=== PATIENT | female | born 1975 | race Caucasian/White ===

== ENCOUNTER 2021-03-17 09:32 | Outpatient (RCR) | payer OTHER, SELFPAY | END 2021-04-03 23:59 | LOC: LABSPEC 09:32 | PROVIDERS: Visit Provider Family Medicine Geriatric Medicine | DX: Z03.818 Encounter for observation for suspected exposure to other biological agents ruled out (principal) | CPT/HCPCS: 87426 ==

== ENCOUNTER 2021-04-03 13:12 | Outpatient (RCR) | payer OTHER, SELFPAY | END 2021-04-03 23:59 | LOC: EMPH 13:12 | PROVIDERS: Visit Provider Family Medicine Geriatric Medicine | DX: Z03.818 Encounter for observation for suspected exposure to other biological agents ruled out (principal) | CPT/HCPCS: 87426; 87635; U0005; U0003 ==

== ENCOUNTER 2021-05-01 12:14 | Outpatient (RCR) | payer MEDICARE, SELFPAY | END 2021-05-04 23:59 | LOC: EMPH 12:14 | PROVIDERS: Visit Provider Family Medicine Geriatric Medicine | DX: Z03.818 Encounter for observation for suspected exposure to other biological agents ruled out (principal) | CPT/HCPCS: 87426 ==

== ENCOUNTER 2021-05-30 11:48 | Outpatient (RCR) | payer OTHER, MEDICARE, SELFPAY | END 2021-06-03 23:59 | LOC: EMPH 11:48 | PROVIDERS: Visit Provider Family Medicine Geriatric Medicine | DX: Z03.818 Encounter for observation for suspected exposure to other biological agents ruled out (principal) | CPT/HCPCS: 87426 ==

== ENCOUNTER 2021-06-05 08:36 | Outpatient (RCR) | payer OTHER, SELFPAY | END 2021-07-04 23:59 | LOC: EMPH 08:36 | PROVIDERS: Visit Provider Family Medicine Geriatric Medicine | DX: Z03.818 Encounter for observation for suspected exposure to other biological agents ruled out (principal) | CPT/HCPCS: 87426 ==

== ENCOUNTER 2021-06-13 14:10 | Outpatient (RCR) | payer OTHER, SELFPAY ==
[2021-06-13 10:27] LABS: Probe Check PASS
== END 2021-07-04 23:59 ==
LOC: EMPH 14:10
PROVIDERS: Visit Provider Family Medicine Geriatric Medicine
DX: Z03.818 Encounter for observation for suspected exposure to other biological agents ruled out (principal)
CPT/HCPCS: 87426; 87635; U0005; U0003

== ENCOUNTER → 2023-12-24 | Outpatient (CLI) | payer OTHER, MEDICAID, SELFPAY ==
--- NOTE | 2023-12-24 07:12 | BI_ITS ---
MAMMOGRAPHY - BILATERAL SCREENING REASON FOR EXAM: Female, 48 years old. Routine annual screening examination. PERTINENT HISTORY: Non-contributory. TECHNIQUE: Digital bilateral breast alex (3D mammographic acquisition) in the CC and MLO projections. 2-D mediolateral oblique (MLO) and craniocaudad (CC) views of both breasts were obtained. CAD: Full Field Digital Mammography with Computer Added Detection was performed. COMPARISON: Comparison is made with prior outside examination dated November 17, 2021. FINDINGS: Breast Composition: The breasts are extremely dense, which lowers the sensitivity of mammography. There are no dominant masses or suspicious calcifications. No other significant abnormalities are identified. There has been no significant change since the prior study. BI/SCRN MAMM (CAD)W/ALEX BILAT IMPRESSION: Stable bilateral screening mammogram. Yearly follow-up mammogram recommended. (A) ASSESSMENT CATEGORY: BIRADS Category 1: Negative. A letter regarding these results will be sent to the patient by the facility within 30 days. Approximately 10% of breast cancers are not detected by mammography. A normal mammogram should not delay biopsy of a clinically suspicious abnormality. [id number] Electronically Signed: Shad Pavon MD at 8:36 EDT ,
== END | disposition home or self-care (01) ==
PROVIDERS: PCP Family Medicine; Referring Provider Family Medicine; Visit Provider Family Medicine
DX: Z12.31 Encounter for screening mammogram for malignant neoplasm of breast (principal)
CPT/HCPCS: 77063; 77067

== ENCOUNTER → 2025-01-19 | Outpatient (CLI) | payer OTHER, SELFPAY ==
--- NOTE | 2025-01-19 07:09 | BI_ITS ---
EXAM: SCRN MAMM (CAD)W/ALEX BILAT DATE: 01/19/2025 CLINICAL HISTORY: F, Age 49 y/o , SCREENING TECHNIQUE: SCRN MAMM (CAD)W/ALEX BILAT COMPARISON: Prior exam(s) dated 12/24/2023. FINDINGS: TISSUE DENSITY: The breasts are heterogeneously dense, which may obscure small masses. The mammogram demonstrates that the patient has dense breasts. Supplemental screening with whole breast ultrasound or MRI may be considered for further evaluation. Bilateral Breast Mammographic Findings: No significant masses, calcifications or other abnormalities are identified. BI/SCRN MAMM (CAD)W/ALEX BILAT IMPRESSION: There is no mammographic evidence of malignancy. OVERALL FINAL ASSESSMENT BI-RADS 1: NEGATIVE. RECOMMENDATION: Routine annual follow-up in 1 Year A letter with findings and recommendations will be mailed to the patient. Reading Location: [id number]
--- OUTSIDE RECORDS SUMMARY | 2025-01-19 07:13 | XMS RPT_ITS | CCD ---
Author Organization [facility] Care Team Providers [facility] Food Service Worker Name Role Phone Joe Webb Primary Care Provider Stephanie Rutledge L Unavailable Unavailable Unavailable Stephanie Rutledge Attending Unavailable Aamir, Stephanie Referring Unavailable Aamir, Stephanie Primary Care Unavailable Aamir, Stephanie Attending Unavailable Aamir, Stephanie Referring Unavailable Aamir, Stephanie Primary Care Unavailable Aamir Stephanie Attending Unavailable Aamir, Stephanie Referring Unavailable AamirStephanie Primary Care Unavailable Stephanie Rutledge MD Primary Care Provider Stephanie Rutledge MD Unavailable [phone] Aamir, Dr. Stephanie Sanchez Referring Unavailab le Aamir, Dr. Stephanie Sanchez Attending Unavailab le Aamir, Dr. Stephanie Sanchez Primary Care Unavailab le Aamir, Dr. Stephanie Sanchez Attending Unavailab le Aamir, Dr. Stephanie Sanchez Primary Care Unavailab Stephanie Valderrama MD Unavailable Aamir Stephanie Referring Unavailable Aamir, Stephanie Attending Unavailable Aamir, Stephanie Primary Care Unavailable Aamir, Stephanie Primary Care Unavailable Assessment, Health Risk Referring Unavaila ble Assessment, Health Risk Attending Unavaila ble Stephanie Rutledge MD Primary Care Provider STEPHANIE RUTLEDGE Attending Unavailable STEPHANIE RUTLEDGE Primary Care Unavailable STEPHANIE RUTLEDGE Attending Unavailable STEPHANIE RUTLEDGE Primary Care Unavailable Allergies Allergy Classification Reported Allergen(s) Allergy Type Date of Onset Reaction(s) Facility (5 sources) gabapentin; Translations: [GABAPENTIN] Drug Allergy 11-09-2022 [facility] Medications Current Medications Medication Drug Class(es) Dates Sig (Normalized) Sig (Original) ascorbic acid 500 mg oral capsule (4 sources) Vitamin C ascorbic acid, vitamin C, 500 mg capsule Take by mouth. Active cholecalciferol 0.05 mg oral capsule (4 sources) Vitamin D cholecalciferol (Vitamin D-3) 50 mcg (2,000 unit) capsule Take by mouth. Active magnesium oxide 400 mg oral tablet (4 sources) magnesium oxide (Mag-Ox) 400 mg tablet 1 tablet (400 mg) once daily. Active naproxen sodium 220 mg oral tablet (3 sources) Nonsteroidal Anti-inflammatory Drug Start: 08-18-2013 naproxen sodium (Aleve) 220 mg tablet Take 1 tablet (220 mg) by mouth if needed. 08/18/2013 Active Completed/Discontinued Medications Medication Drug Class(es) Dates Sig (Normalized) Sig (Original) Enskyce 0.15-30 MG-MCG Oral Tablet (6 sources) Start: 04-28-2020 Enskyce 0.15-30 MG-MCG Oral Tablet Quantity: 28 Refills: 0 Ordered: 28-Apr-2020 DO Start : 28-Apr-2020 Active ipratropium bromide 0.021 mg/actuat metered dose nasal spray (10 sources) Anticholinergic Start: 05-22-2019 End: 11-20-2024 ipratropium (Atrovent) 21 mcg (0.03 %) nasal spray Administer into affected nostril(s). 05/22/2019 11/20/2024 Discontinued (Med List Cleanup) Start: 05-22-2019 take 2 spray(s) nasa l route three times daily as needed Ipratropium [place] 0.03 % Nasal Solution USE 2 SPRAY(S) IN EACH NOSTRIL THREE TIMES DAILY NEEDED FOR NASAL C Quantity: 1 Refills: 11 Ordered: 03-Nov-2021 Stephanie Rutledge MD Start : 22-May-2019 Active pregabalin 150 mg oral capsule (13 sources) Start: 05-17-2023 End: 05-22-2025 take 1 capsule by mouth twice daily pregabalin (Lyrica) 150 mg capsule Indications: Other migraine without status migrainosus, not intractable , Chronic neck pain Take 1 capsule (150 mg) by mouth 2 times a day. 60 capsule 5 05/22/2024 11/20/2024 Discontinued (Reorder) Start: 05-22-2019 take 1 capsule by [facility] twice daily pregabalin (Lyrica) 150 mg capsule Take 1 capsule (150 mg) by mouth 2 times a day. 0 05/22/2019 Active Vitamin C CAPS (6 sources) Vitamin C CAPS Q uantity: 0 Refills: 0 Ordered: 15-May-2021 DO Active Vitamin D CAPS (6 sources) Vitamin D CAPS Q uantity: 0 Refills: 0 Ordered: 15-May-2021 DO Active Zinc (6 sources) Zinc TABS Quanti ty: 0 Refills: 0 Ordered: 15-May-2021 DO Active Problems Active Problems Problem Classification Problem Date Documented Da te Episodic/Chronic Headache; including migraine (16 sources) Migraine; Translations: [Migraine, unspecified, without mention of intractable migraine without mention of status migrainosus] Onset: 11-09-2022 11-09-2022 Chronic Other aftercare (20 sources) Patient encounter status; Translations: [Encounter for therapeutic drug monitoring] Onset: 11-09-2022 11-09-2022 Episodic Comment on above: lyrica; Other aftercare (1 source) H/O: high risk medication; Translations: [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] 11-20-2024 Episodic Other aftercare (1 source) Long-term current use of drug therapy; Translations: [Other usp (current) drug therapy] 11-20-2024 Episodic Other aftercare (2 sources) 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; Translations: [Other usp (current) drug therapy] Onset: 11-20-2024 Episodic Other nervous system disorders (2 sources) Other chronic pain; Translations: [Other chronic pain] Onset: 11-09-2022 Chronic Other screening for suspected conditions (not mental disorders or infectious disease) (16 sources) Mammography abnormal; Translations: [Abnormal mammogram, unspecified] Onset: 11-09-2022 11-09-2022 Episodic Other upper respiratory disease (6 sources) Allergic rhinitis; Translations: [Allergic rhinitis, cause unspecified] Chronic Unclassified (1 source) Patient encounter status 11-20-2024 Past or Other Problems Problem Classification Problem Date Documented Da te Episodic/Chronic Nonmalignant breast conditions (1 source) Other specified disorders of breast; Translations: [Other specified disorders of breast] Onset: 05-25-2022 Episodic Spondylosis; intervertebral disc disorders; other back problems (10 sources) Chronic neck pain; Translations: [Cervicalgia] Onset: 11-09-2022 11-09-2022 Episodic Results Test Name Value Interpretation Reference Range Facility DRUG MONITOR, CLAUDIO KAPOOR URI NEon 11-23-2024 Alphahydroxyalprazolam Normal [facility] Comment on above: Performed By: #### 3 9367, 07886, 12280, 12319, 20073, 02733, 87633, 66175, 82584 #### [facility] [place] [address] Passport Support Associate: Deshawn Miller MD Alphahydroxymidazolam Normal [facility] Comment on above: Performed By: #### 3 9367, 42412, 10140, 63836, 45040, 07623, 60643, 95328, 33676 #### [facility] [place] [address] Passport Support Associate: Deshawn Miller MD Alphahydroxytriazolam Normal [facility] Comment on above: Performed By: #### 3 9367, 23523, 25269, 47983, 71112, 77886, 35252, 49259, 14227 #### [facility] [place] [address] Passport Support Associate: Deshawn Miller MD Aminoclonazepam Normal [facility] Comment on above: Performed By: #### 3 9367, 32601, 78041, 96568, 53323, 60847, 10177, 19248, 29768 #### [facility] [place] [address] Passport Support Associate: Deshawn Miller MD Benzodiazepines Comments Normal [facility] Comment on above: Performed By: #### 3 9367, 52726, 57158, 31389, 78473, 58578, 07038, 14175, 83212 #### [facility] [place] [address] Passport Support Associate: Deshawn Miller MD Hydroxyethylflurazepam Normal [facility] Comment on above: Performed By: #### 3 9367, 12191, 96231, 52475, 58926, 54273, 54946, 76225, 23077 #### [facility] [place] [address] Passport Support Associate: Deshawn Miller MD Lorazepam Normal [facility] Comment on above: Performed By: #### 3 9367, 53719, 69998, 82584, 96722, 48817, 20286, 55129, 21483 #### [facility] [place] [address] [employer]port Support Associate: Deshawn Pantoja Aminoclonazepam Normal [facility] Comment on above: Performed By: #### 3 9367, 35052, 83316, 96260, 19799, 14351, 35481, 19469, 86874 #### [facility] [place] [address] Passport Support Associate: Deshawn Renteria alprazolam Normal Q uest Diagnostics Comment on above: Performed By: #### 3 9367, 00585, 19972, 66298, 38015, 23635, 85551, 38526, 30322 #### [facility] [place] [address] [employer]port Support Associate: Deshawn Renteria midazolam Normal [facility] Comment on above: Performed By: #### 3 9367, 82561, 84814, 38426, 81933, 61094, 23072, 60007, 27083 #### [facility] [place] [address] [employer]port Support Associate: Deshawn Gerard triazolam Normal [facility] Comment on above: Performed By: #### 3 9367, 35740, 66804, 69875, 58262, 51509, 93101, 10528, 16436 #### [facility] [place] [address] Passport Support Associate: Deshawn Merati MD medMATCH Lorazepam Normal [facility] Comment on above: Performed By: #### 3 9367, 71683, 66658, 25802, 16291, 34618, 09511, 69003, 41560 #### [facility] [place] [address] [address] , [address] [place] [address] Passport Support Associate: Deshawn Pantoja Nordiazepam Normal Ques t [facility] Comment on above: Performed By: #### 3 9367, 57368, 09912, 47838, 72379, 55572, 89413, 89851, 75529 #### [facility] [address], [address] [place] [address] Passport Support Associate: Deshawn Pantoja [place], flurazepam Normal [facility] Comment on above: Performed By: #### 3 9367, 79610, 26975, 32023, 12321, 70232, 43009, 35608, 78129 #### [facility] [place] [address] [address] , [address] [place] [address] Passport Support Associate: Deshawn Pantoja Oxazepam Normal [facility] Comment on above: Performed By: #### 3 9367, 93676, 92398, 43334, 11005, 00768, 16362, 59232, 53932 #### [facility] [place] [address], [address] [place] [address] Passport Support Associate: Deshawn Pantoja Temazepam Normal [facility] Comment on above: Performed By: #### 3 9367, 18768, 48399, 67260, 90711, 37681, 55912, 26702, 30976 #### [facility] [place] [address] Passport Support Associate: Deshawn Miller MD Nordiazepam Normal [facility] Comment on above: Performed By: #### 3 9367, 41587, 69354, 24062, 70529, 54397, 52491, 85960, 84504 #### [facility] [address], [address] [place] [address] Passport Support Associate: Deshawn Miller MD Oxazepam Normal [facility] Comment on above: Performed By: #### 3 9367, 20579, 07022, 06555, 61219, 50290, 90313, 93843, 53158 #### [facility] [place] [address] Passport Support Associate: Deshawn Miller MD Temazepam Normal [facility] Comment on above: Performed By: #### 3 9367, 63818, 89054, 41882, 61559, 53576, 80587, 05940, 84337 #### [facility] [place] [address] Passport Support Associate: Deshawn Miller MD DRUG MONITOR, COCAINE METAB, W/CONF, URINEon 11-23-2024 Cocaine Metabolite Negative Normal <150 [facility] Comment on above: Performed By: #### 3 9367, 90597, 17807, 33967, 22118, 00357, 43670, 12608, 43381 #### [facility] [place] [address] Passport Support Associate: Deshawn Miller MD DRUG MONITOR, FENTANYL, QN, URINEon 11-23-2024 Fentanyl Negative Normal <0.5 [facility] Comment on above: Performed By: #### 3 9367, 03950, 66718, 56027, 10883, 41451, 33888, 88888, 22989 #### [facility] [place] [address] Passport Support Associate: Deshawn Miller MD Fentanyl Comments Normal [facility] Comment on above: Result Comment: See LDT Notes Performed By: #### 3 9367, 32748, 75507, 59213, 37122, 90743, 65162, 49804, 88357 #### [facility] [place] [address] Passport Support Associate: Deshawn Miller MD Norfentanyl Negative Normal <0.5 [facility] Comment on above: Performed By: #### 3 9367, 59454, 61779, 94398, 88589, 82757, 94771, 74373, 69447 #### [facility] [place] [address] Passport Support Associate: Deshawn Miller MD DRUG MONITOR, HEROIN METAB, QN, URINEon 11-23-2024 6 Acetylmorphine Negative Normal <10 [facility] Comment on above: Performed By: #### 3 9367, 02543, 29898, 83675, 02919, 11064, 23235, 58536, 36441 #### [facility] [place] [address] Passport Support Associate: Deshawn Miller MD Heroin Metab Comments Normal [facility] Comment on above: Result Comment: See LDT Notes Performed By: #### 3 9367, 23623, 59213, 97136, 07811, 45659, 05183, 37737, 99807 #### [facility] [place] [address] Passport Support Associate: Deshawn Miller MD DRUG MONITOR, MARIJUANA META B, W/CONF, URINEon 11-23-2024 Marijuana Metabolite Negative Normal <20 Ques t [facility] Comment on above: Performed By: #### 3 9367, 42400, 80731, 53019, 18254, 79352, 32316, 96558, 06482 #### [facility] [place] [address] Passport Support Associate: Deshawn Miller MD DRUG MONITOR, METHADONE META B, QN, URINEon 11-23-2024 EDDP Negative Normal <100 [facility] Comment on above: Performed By: #### 3 9367, 36998, 75915, 29526, 86272, 40844, 66395, 35424, 21936 #### [facility] [place] [address] Passport Support Associate: Deshawn Miller MD Methadone Negative Normal <100 [facility] Comment on above: Performed By: #### 3 9367, 47017, 28347, 13781, 88853, 98786, 77102, 64044, 40263 #### [facility] [address], [address] [place] [address] Passport Support Associate: Deshawn Miller MD Methadone Comments Normal [facility] Comment on above: Result Comment: See LDT Notes Performed By: #### 3 9367, 44687, 12185, 71475, 78807, 34816, 84318, 46423, 35285 #### [facility] [address], [address] [place] [address] Passport Support Associate: Deshawn Miller MD DRUG MONITOR, OPIATES EXPAND ED, QN, URINEon 11-23-2024 Codeine Negative Normal <50 [facility] Comment on above: Performed By: #### 3 9367, 47058, 24870, 17518, 55569, 90258, 22717, 93676, 95334 #### [facility] [place] [address] Passport Support Associate: Deshawn Miller MD Hydrocodone Negative Normal <50 [facility] Comment on above: Performed By: #### 3 9367, 13924, 28021, 75349, 81623, 12273, 24551, 50709, 22538 #### [facility] [place] [address] Passport Support Associate: Deshawn Miller MD Hydromorphone Negative Normal <50 [facility] Comment on above: Performed By: #### 3 9367, 72348, 12351, 25324, 72572, 10831, 99905, 26544, 66724 #### [facility] [place] [address] Passport Support Associate: Deshawn Miller MD Morphine Negative Normal <50 [facility] Comment on above: Performed By: #### 3 9367, 39671, 57447, 63833, 89864, 65625, 74706, 77934, 89084 #### [facility] [place] [address] Passport Support Associate: Deshawn Miller MD Norhydrocodone Negative Normal <50 [facility] Comment on above: Performed By: #### 3 9367, 28530, 96931, 37315, 30475, 78030, 82147, 25604, 51150 #### [facility] [address], [address] [place] [address] Passport Support Associate: Deshawn Miller MD Noroxycodone Negative Normal <50 [facility] Comment on above: Performed By: #### 3 9367, 51141, 72977, 27596, 65832, 41312, 00139, 61782, 33770 #### [facility] [address], [address] [place] [address] Passport Support Associate: Deshawn Miller MD Opiates Comments Normal [facility] Comment on above: Result Comment: See LDT Notes Performed By: #### 3 9367, 26178, 00247, 54975, 54646, 90539, 65172, 38390, 16758 #### [facility] [address], [address] [place] [address] Passport Support Associate: Deshawn Miller MD Oxycodone Negative Normal <50 [facility] Comment on above: Performed By: #### 3 9367, 60134, 21908, 51560, 00113, 15473, 40661, 94130, 05111 #### [facility] [address], [address] [place] [address] Passport Support Associate: Deshawn Miller MD Oxycodone Comments Normal [facility] Comment on above: Result Comment: See LDT Notes Performed By: #### 3 9367, 56108, 54106, 46167, 62229, 25264, 26424, 14743, 96029 #### [facility] [address], [address] [place] [address] Passport Support Associate: Deshawn Miller MD Oxymorphone Negative Normal <50 [facility] Comment on above: Performed By: #### 3 9367, 03255, 66487, 66677, 31669, 27041, 27764, 84453, 19107 #### [facility] [address], [address] [place] [address] Passport Support Associate: Deshawn Miller MD DRUG MONITOR, PCP, W/CONF, U RINEon 11-23-2024 Phencyclidine Negative Normal <25 [facility] Comment on above: Performed By: #### 3 9367, 80235, 71397, 26399, 28316, 69728, 72214, 84140, 74571 #### [facility] [address], [address] [place] [address] Passport Support Associate: Deshawn Miller MD DRUG MONITOR, PREGABALIN, QN , URINEon 11-23-2024 Pregabalin 16775 ng/mL High <1000 [facility] Comment on above: Performed By: #### 3 9367, 02817, 46650, 77384, 70002, 51607, 38531, 19224, 71316 #### [facility] [address], [address] [place] [address] Passport Support Associate: Deshawn Miller MD Pregabalin Comments Normal [facility] Comment on above: Result Comment: See Pregabalin Notes, LDT Notes Performed By: #### 3 9367, 28840, 49803, 12677, 56720, 55448, 32302, 33433, 34980 #### [facility] [address], [address] [place] [address] Passport Support Associate: Deshawn Milelr MD DRUG MONITOR, TRAMADOL, QN, URINEon 11-23-2024 Desmethyltramadol Negative Normal <100 [facility] Comment on above: Performed By: #### 3 9367, 67209, 69975, 00091, 15899, 79204, 27626, 20084, 24158 #### [facility] [address], [address] [place] [address] Passport Support Associate: Deshawn Miller MD Tramadol Negative Normal <100 [facility] Comment on above: Performed By: #### 3 9367, 71237, 59002, 66194, 18590, 25684, 58858, 52860, 15064 #### [facility] [address], [address] [place] [address] Passport Support Associate: Deshawn Miller MD Tramadol Comments Normal [facility] Comment on above: Result Comment: See LDT Notes Performed By: #### 3 9367, 80277, 27235, 11138, 90263, 58644, 93729, 72081, 67878 #### [facility] [address], [address] [place] [address] Passport Support Associate: Deshawn Miller MD DRUG MONITOR, ZOLPIDEM, QN, URINEon 11-23-2024 medMATCH Zolpidem Normal [facility] Comment on above: Performed By: #### 3 9367, 33857, 47242, 37822, 77098, 46521, 54555, 85418, 50183 #### [facility] [place] [address] Passport Support Associate: Deshawn Miller MD medMATCH Zolpidem Metab Normal [facility] Comment on above: Performed By: #### 3 9367, 19761, 13751, 42626, 79498, 40111, 31429, 97315, 02725 #### [facility] [address], [address] [place] [address] Passport Support Associate: Desahwn Miller MD Zolpidem Normal [facility] Comment on above: Performed By: #### 3 9367, 91615, 53677, 91243, 01014, 08671, 79346, 09917, 71646 #### [facility] [address], [address] [place] [address] Passport Support Associate: Deshawn Miller MD Zolpidem Comments Normal [facility] Comment on above: Performed By: #### 3 9367, 89516, 37671, 58996, 25173, 11010, 83021, 95663, 01903 #### [facility] [place] [address] [employer]port Support Associate: Deshawn Miller MD Zolpidem Metabolite Normal [facility] Comment on above: Performed By: #### 3 9367, 80870, 86528, 15511, 96756, 33939, 66530, 24081, 01128 #### [facility] [address], [address] [place] [address] Passport Support Associate: Deshawn Miller MD DRUG MONITOR,AMPHETAMINE, W/ CONF, URINEon 11-23-2024 Amphetamines Negative Normal <500 [facility] Comment on above: Performed By: #### 3 9367, 57895, 80845, 65211, 22825, 05535, 35711, 68785, 70794 #### [facility] [address], [address] [place] [address] [employer]port Support Associate: Deshawn Miller MD DRUG MONITOR,BARBITURATE, W/ CONF, URINEon 11-23-2024 Barbiturates Negative Normal <300 [facility] Comment on above: Performed By: #### 3 9367, 03076, 88531, 25936, 52576, 72260, 50406, 81154, 61342 #### [facility] [address], [address] [place] [address] Passport Support Associate: Deshawn Miller MD DRUG MONITORING TEMPLATEon 0 11-23-2024 Notes and Comments Normal [facility] Comment on above: Result Comment: This drug testing is for medical treatment only. Analysis was performed as non-forensic testing and these results should be used only by healthcare providers to render diagnosis or treatment, or to monitor progress of medical conditions. Pregabalin Notes: Pregabalin detected is consistent with the use of the drug Pregabalin. LDT Notes: Confirmation tests were developed and their analytical performance characteristics have been determined by [facility]. It has not been cleared or approved by the FDA. This assay has been validated pursuant to the CLIA regulations and is used for clinical purposes. Healthcare Providers needing Interpretation assistance, please contact us at [phone] ( ) M-F, 8am to 10pm EST Performed By: #### 3 9367, 33797, 88791, 28042, 21728, 53093, 66716, 98780, 87324 #### [facility] [address], [address] [place] [address] Passport Support Associate: Deshawn Miller MD SPECIMEN VALIDITY TEST PANEL on 11-23-2024 Creatinine [Mass/Vol] 36.1 mg/dL Normal > or = 20.0 [facility] Comment on above: Performed By: #### 3 9367, 25634, 72949, 23155, 95286, 34994, 14717, 42829, 82225 #### [facility] [address], [address] [place] [address] [employer]port Support Associate: Deshawn Miller MD Oxidant Negative Normal <200 [facility] Comment on above: Performed By: #### 3 9367, 04862, 10881, 42628, 96852, 56602, 77973, 95606, 95555 #### [facility] [address], [address] [place] [address] [employer]port Support Associate: Deshawn Miller MD pH (Bld) 6.8 [pH] Normal 4.5-9.0 [facility] Comment on above: Performed By: #### 3 9367, 69534, 94585, 63795, 44910, 85126, 10515, 85687, 59857 #### [facility] [address], [address] [place] [address] [employer]port Support Associate: Deshawn Miller MD CBC, Employeeon 11-15-2024 Absolute Lymph 1.47 X10 3/uL Normal 0.83-4.51 [facility] Comment on above: Performed By: #### L 400.0100, L100.0200, L500.2900 #### [facility] [address] [place], [address] Absolute Neut 2.7 X10 3/uL Normal 2.0-7.7 [facility] Comment on above: Performed By: #### L 400.0100, L100.0200, L500.2900 #### [facility] [address] [facility] [place], [address] Basophils/100 WBC (Bld) 0.4 % Normal 0-1 [facility] Comment on above: Performed By: #### L 400.0100, L100.0200, L500.2900 #### [facility] [address] [place], [address] Eosinophils/100 WBC (Bld) 2.5 % Normal 0-5 [facility] Comment on above: Performed By: #### L 400.0100, L100.0200, L500.2900 #### [facility] [address] [place], [address] Erythrocyte distribution width (RBC) [Ratio] 12.6 % Normal 11.6-14.6 [facility] Comment on above: Performed By: #### L 400.0100, L100.0200, L500.2900 #### [facility] [address] [place], [address] Hematocrit (Bld) [Volume fraction] 42.9 % Normal 37-47 [facility] Comment on above: Performed By: #### L 400.0100, L100.0200, L500.2900 #### [facility] [address] [place], [address] Hemoglobin (Bld) [Mass/Vol] 14.1 g/dL Normal 12.0-15.0 [facility] Comment on above: Performed By: #### L 400.0100, L100.0200, L500.2900 #### [facility] [address] [place], [address] Lymphocytes/100 WBC (Bld) 31.0 % Normal 19-41 [facility] Comment on above: Performed By: #### L 400.0100, L100.0200, L500.2900 #### [facility] [address] [place], [address] MCH (RBC) [Entitic mass] 29.8 pg Normal 27.0-32.0 [facility] Comment on above: Performed By: #### L 400.0100, L100.0200, L500.2900 #### [facility] [address] [place], [address] MCHC (RBC) [Mass/Vol] 32.9 g/dL Normal 32-36 [facility] Comment on above: Performed By: #### L 400.0100, L100.0200, L500.2900 #### [facility] [address] [place], [address] MCV (RBC) [Entitic vol] 90.7 fL Normal 81-99 [facility] Comment on above: Performed By: #### L 400.0100, L100.0200, L500.2900 #### [facility] [address] [place], [address] Monocytes/100 WBC (Bld) 9.7 % Normal 0-10 [facility] Comment on above: Performed By: #### L 400.0100, L100.0200, L500.2900 #### [facility] [address] [place], [address] Neutrophils/100 WBC (Bld) 56.2 % Normal 47-70 [facility] Comment on above: Performed By: #### L 400.0100, L100.0200, L500.2900 #### [facility] [address] [place], [address] NRBC # 0.00 10 3/uL Normal 0-5 [facility] Comment on above: Performed By: #### L 400.0100, L100.0200, L500.2900 #### [facility] [address] [place], [address] Nucleated RBC (Bld) [#/Vol] 0 10*3/uL Normal 0-5 [facility] Comment on above: Performed By: #### L 400.0100, L100.0200, L500.2900 #### [facility] [address] [place], [address] Platelet mean volume (Bld) [Entitic vol] 10.5 fL Normal 6.2-12.0 [facility] Comment on above: Performed By: #### L 400.0100, L100.0200, L500.2900 #### [facility] [address] [place], [address] Platelets (Bld) [#/Vol] 201 10*3/uL Normal 150-450 [facility] Comment on above: Performed By: #### L 400.0100, L100.0200, L500.2900 #### [facility] [address] [place], [address] RBC (Bld) [#/Vol] 4.73 10*6/uL Normal 4.2-5.4 [facility] Comment on above: Performed By: #### L 400.0100, L100.0200, L500.2900 #### [facility] [address] [place], [address] RDW SD 41.9 fl Normal 35.1-43.9 [facility] Comment on above: Performed By: #### L 400.0100, L100.0200, L500.2900 #### [facility] [address] [place], [address] WBC (Bld) [#/Vol] 4.7 10*3/uL Normal 4.4-11.0 [facility] Comment on above: Performed By: #### L 400.0100, L100.0200, L500.2900 #### [facility] [address] [place], [address] Employee Profileon 5 Cholesterol in LDL [Mass/Vol] 130 mg/dL Normal 0-130 [facility] Comment on above: Performed By: #### L 400.0100, L100.0200, L500.2900 #### [facility] [address] [place], [address] Urinalysis, Employeeon 11-15 BILIRUBIN URINE Normal Negative [facility] Comment on above: Order Comment: Urine , Random Result Comment: NOT WANTED Performed By: #### L 400.0100, L100.0200, L500.2900 #### [facility] [address] [place], [address] Clarity (U) Normal Clear [facility] Comment on above: Order Comment: Urine , Random Result Comment: NOT WANTED Performed By: #### L 400.0100, L100.0200, L500.2900 #### [facility] [address] [place], [address] Color (U) Normal Yellow [facility] Comment on above: Order Comment: Urine , Random Result Comment: NOT WANTED Performed By: #### L 400.0100, L100.0200, L500.2900 #### [facility] [address] [place], [address] GLUCOSE, UR Normal Normal [facility] Comment on above: Order Comment: Urine , Random Result Comment: NOT WANTED Performed By: #### L 400.0100, L100.0200, L500.2900 #### [facility] [address] [place], [address] KETONE UR Normal Negative [facility] Comment on above: Order Comment: Urine , Random Result Comment: NOT WANTED Performed By: #### L 400.0100, L100.0200, L500.2900 #### [facility] [address] [place], [address] LEUK ESTERASE Normal Negative [facility] Comment on above: Order Comment: Urine , Random Result Comment: NOT WANTED Performed By: #### L 400.0100, L100.0200, L500.2900 #### [facility] [address] [place], [address] Nitrite Ql (U) Normal Negative [facility] Comment on above: Order Comment: Urine , Random Result Comment: NOT WANTED Performed By: #### L 400.0100, L100.0200, L500.2900 #### [facility] [address] [place], [address] OCCULT BLOOD-UR Normal Negative [facility] Comment on above: Order Comment: Urine , Random Result Comment: NOT WANTED Performed By: #### L 400.0100, L100.0200, L500.2900 #### [facility] [address] [place], [address] pH UR Normal 5.0 - 8.0 [facility] Comment on above: Order Comment: Urine , Random Result Comment: NOT WANTED Performed By: #### L 400.0100, L100.0200, L500.2900 #### [facility] [address] [place], [address] PROT DIPSTX Normal Negative [facility] Comment on above: Order Comment: Urine , Random Result Comment: NOT WANTED Performed By: #### L 400.0100, L100.0200, L500.2900 #### [facility] [address] [place], [address] SP.GR. DIPSTX Normal 1.002-1.030 [facility] Comment on above: Order Comment: Urine , Random Result Comment: NOT WANTED Performed By: #### L 400.0100, L100.0200, L500.2900 #### [facility] [address] [place], [address] UR Preservative Normal [facility] Comment on above: Order Comment: Urine , Random Result Comment: NOT WANTED Performed By: #### L 400.0100, L100.0200, L500.2900 #### [facility] [address] [place], [place], [address] UROBILI Normal Normal [facility] Comment on above: Order Comment: Urine , Random Result Comment: NOT WANTED Performed By: #### L 400.0100, L100.0200, L500.2900 #### [facility] [address] [place], [address] SCRN MAMM (CAD)W/DARWIN BILATo n 12-24-2023 SCRN MAMM (CAD)W/DARWIN BILAT [facility] Services [address] [place], [place] [address] SCRN MAMM (CAD)W/DARWIN BILAT MR#: [id number] Acct: [id number] Name: PEDRITO KHALIL Rep #: [id number] : 1975 F 48 From: Shad kyle MD PCP: Dr. Stephanie Rutledge MD Status: [facility] Study: SCRN MAMM (CAD)W/DARWIN BILAT Date of Exam: 12/04 07/28 Exam# [id number] Ordering [place]: [place] [id number] MAMMOGRAPHY - BILATERAL SCREENING REASON FOR EXAM: Female, 48 years old. Routine annual screening examination. PERTINENT HISTORY: Non-contributory. TECHNIQUE: Digital bilateral breast darwin (3D mammographic acquisition) in the CC and MLO projections. 2-D mediolateral oblique (MLO) and craniocaudad (CC) views of both breasts were obtained. CAD: Full Field Digital Mammography with Computer Added Detection was performed. COMPARISON: Comparison is made with prior outside examination dated November 17, 2021. FINDINGS: Breast Composition: The breasts are extremely dense, which lowers the sensitivity of mammography. There are no dominant masses or suspicious calcifications. No other significant abnormalities are identified. There has been no significant change since the prior study. BI/SCRN MAMM (CAD)W/DARWIN BILAT IMPRESSION: Stable bilateral screening mammogram. Yearly follow-up mammogram recommended. (A) ASSESSMENT CATEGORY: BIRADS Category 1: Negative. A letter regarding these results will be sent to the patient by the facility within 30 days. Approximately 10% of breast cancers are not detected by mammography. A normal mammogram should not delay biopsy of a clinically suspicious abnormality. [id number] Electronically Signed: Shad Pavon MD at 8:36 EDT , CC: Dr. Stephanie Rutledge MD Air Pumper: Signed Normal [facility] COVID-19 virus antigen assay Ordered By: Gilbert Faria on 06-01-2023 SARS-CoV-2 (COVID-19) Ag IA.rapid Ql (Resp) [facility] COVID-19 virus antigen assay Ordered By: Gilbert Faria on 04-16-2023 SARS-CoV-2 (COVID-19) Ag IA.rapid Ql (Resp) [facility] COVID-19 virus antigen assay Ordered By: Gilbert Faria on 03-27-2023 SARS-CoV-2 (COVID-19) Ag IA.rapid Ql (Resp) [facility] SARS-CoV-2 (COVID-19) Ag IA.rapid Ql (Resp) [facility] DIGITAL DIAG MAMM BILAT WITH TOMOon 11-25-2022 DIGITAL DIAG MAMM BILAT WITH DARWIN Patient Name: PEDRITO KHALIL STUDY: Digital diagnostic mammogram bilateral with darwin; 11/25/2022 8:27 am ACCESSION NUMBER(S): [id number] ORDERING CLINICIAN: STEPHANIE RUTLEDGE INDICATION: Diagnostic mammogram. Six-month follow-up abnormal mammogram COMPARISON: Comparison is made to prior digital mammograms dated 05/25/2022 and 11/17/2021 FINDINGS: CC and MLO 2D digital mammograms and digital breast tomosynthesis images were obtained of the bilateral breasts. 3-D volume images were reconstructed in 4 views at an independent workstation as 1 mm slices through the breasts in both the CC and MLO projections. The breast tissue is heterogeneously dense, which may obscure small masses. No discrete mass or focal asymmetry is identified. No suspicious microcalcifications or foci of architectural distortion are seen. There has been no significant change. This study was interpreted with CAD. IMPRESSION: No mammographic evidence of malignancy. The patient may return to normal yearly screening mammogram schedule. BI-RADS CATEGORY: Category: 1 - Negative. Recommendation: 1 Year Screening. Electronically signed by: LUIS MONCADA MD Normal [facility] DRUG SCREEN,URINE WITH REFLE X TO CONFIRMATIONon 11-10-2022 AMPHETAMINE SCREEN,U Negative Normal NEGATIVE [facility] Comment on above: Result Comment: CUTO FF LEVEL: 500 NG/ML Cross-reactivity has been reported with high concentrations of the following drugs: buproprion, chloroquine, chlorpromazine, ephedrine, mephentermine, fenfluramine, phentermine, phenylpropanolamine, pseudoephedrine, and propranolol. Performed By: #### D RUGR #### [facility] [address] [place] [address] BARBITURATES SCREEN,U Negative Normal NEGATIVE [facility] Comment on above: Result Comment: CUTO FF LEVEL: 200 NG/ML Performed By: #### D RUGR #### [facility] [address] [place] [address] BENZODIAZEPINES SCREEN,U Negative Normal NEGATIVE [facility] Comment on above: Result Comment: CUTO FF LEVEL: 200 NG/ML Performed By: #### D RUGR #### [facility] [address] [place] [address] CANNABINOIDS SCREEN,U Negative Normal NEGATIVE [facility] Comment on above: Result Comment: CUTO FF LEVEL: 50 NG/ML Performed By: #### D RUGR #### [facility] [address] [place] [address] COCAINE METABOLITE SCREEN,U Negative Normal NEGATIVE [facility] Comment on above: Result Comment: CUTO FF LEVEL: 150 NG/ML Performed By: #### D RUGR #### [facility] [address] [place] [address] DRUG SCREEN COMMENT SEE BELOW [facility] Comment on above: Result Comment: Drug screen results are presumptive and should not be used to assess compliance with prescribed medication. Definitive confirmatory drug testing has been added to this sample for any positive screen result and will be reported separately. . Toxicology screening results are reported qualitatively. The concentration must be greater than or equal to the cutoff to be reported as positive. The concentration at which the screening test can detect an individual drug or metabolite varies. The absence of expected drug(s) and/or drug metabolite(s) may indicate non-compliance, inappropriate timing of specimen collection relative to drug administration, poor drug absorption, diluted/adulterated urine, or limitations of testing. For medical purposes only; not valid for forensic use. . Interpretive questions should be directed to the laboratory medical directors. Performed By: #### D RUGR #### [facility] [address] [place] [address] FENTANYL SCREEN,URINE Negative Normal NEGATIVE [facility] Comment on above: Result Comment: CUTO FF LEVEL: 5 NG/ML Performed By: #### D RUGR #### [facility] [address] [place] [address] METHADONE SCREEN,U Negative Normal NEGATIVE [facility] Comment on above: Result Comment: CUTO FF LEVEL: 150 NG/ML The metabolite K-lstcr-jsjhtoupntvddy (LAAM) is not detected by this method in concentrations that would be found in the urine of patients on LAAM therapy. Performed By: #### D RUGR #### [facility] [address] [place] [id number] OPIATES SCREEN,U Negative Normal NEGATIVE [facility] Comment on above: Result Comment: CUTO FF LEVEL: 300 NG/ML The opiate screen does not detect fentanyl, meperidine, or tramadol. Oxycodone is not consistently detected (refer to Oxycodone Screen, Urine result). Performed By: #### D RUGR #### [facility] [address] [place] [address] OXYCODONE SCREEN,U Negative Normal NEGATIVE [facility] Comment on above: Result Comment: CUTO FF LEVEL: 100 NG/ML This test will accurately detect both oxycodone and oxymorphone. Performed By: #### D RUGR #### [facility] [address] [place] [id number] PCP SCREEN,U Negative Normal NEGATIVE [facility] Comment on above: Result Comment: CUTO FF LEVEL: 25 NG/ML Cross-reactivity has been reported with dextromethorphan. Performed By: #### D RUGR #### [facility] [address] [place] [address] DRUG SCREEN,URINE WITH REFLE X TO CONFIRMATIONon 11-09-2022 Lab Specimen Source Urine Normal [facility] Comment on above: Performed By: #### D RUGR #### [facility] [address] [place] [address] DIGITAL DIAG MAMM LEFT W/JC O UNILATon 05-25-2022 DIGITAL DIAG MAMM LEFT W/DARWIN UNILAT Patient Name: PEDRITO KHALIL STUDY: Left digital diagnostic mammogram with darwin; 05/25/2022 8:15 am ACCESSION NUMBER(S): [id number] ORDERING CLINICIAN: STEPHANIE RUTLEDGE INDICATION: Diagnostic mammogram. Prior abnormal mammogram COMPARISON: Comparison is made to prior digital mammograms dated 11/17/2021 FINDINGS: CC and MLO 2D digital mammograms and digital breast tomosynthesis images were obtained of the left breast. 3-D volume images were reconstructed in 3 views at an independent workstation as 1 mm slices through the left breast in both the CC and MLO projections. The breast tissue is heterogeneously dense, which may obscure small masses. The focal asymmetry seen on the prior examination is not well visualized on the current study.No discrete mass or focal asymmetry is currently identified. No suspicious microcalcifications or foci of architectural distortion are seen. This study was interpreted with CAD. IMPRESSION: No mammographic evidence of malignancy. Recommendation is for follow-up examination in 6 months with bilateral diagnostic mammograms. BI-RADS CATEGORY: Category: 3 - Probably Benign. Recommendation: 6 Month Follow-up. Electronically signed by: LUIS MONCADA MD Normal [facility] Radiologyon 05-25-2022 MG Breast Screening Normal [facility] Work Phone: Office Visit (Family Arun davis)on 05-11-2022 Follow-up visit Diagnoses/Problems Abnormal mammogram (793.80) (R92.8) Migraine (346.90) (G43.909) Orders Abnormal mammogram Ultrasound Limited Breast; Status:Hold For - Scheduling; Requested for:11May2022; Radiologist to Determine Optimal Study : Y What are the patient's signs and symptoms? : 6 month followed Migraine Renew: Pregabalin 150 MG Oral Capsule; take 1 capsule by mouth twice daily Chief Complaint mdck. 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 Recommendation is to repeat diagnostic bilateral mammogram in November 2022. 1 last chol has normal about 2018 and recommend every 5 years Fxhx neg colon cancer neg for dm liver hemangioma MRI confirmed and had liver cyst ros all other systems have been reviewed and are negative except as noted in the HPI I have personally reviewed the [place] report for PEDRITO KHALIL. I have considered the risks of abuse, dependence, addiction and diversion. Is the patient prescribed a combination of a benzodiazepine and opioid? No. Last urine drug screening date/ordered today: 11/03/21 Results of last screen: Results as expected. Controlled Substance Agreement: I have printed this form and reviewed each line item with the patient and the patient has verbalized understanding. Date of the last Controlled Substance Agreement: 05/11/2022 LYRICA What is the patient?s goal of therapy? migraines. Is this being achieved with current treatment? yes. Pain Assessment and Documentation Tool (PADT) Date of Assessment: 05/11/22 Analgesia: Patient reports her pain level on average during the past week is 1 on a 0 - 10 scale. Patient reports that her pain level at its worst during the past week was 3 on a 0 -10 scale. 75 % of pain has been relieved during the past week per patient Patient states that the amount of pain relief she is now obtaining from her current pain reliever(s) is enough to make a real difference in her life. Query to clinician: Is the patient's pain relief clinically significant? Yes Activities of Daily Living: Physical functioning: Better Mood: Same Sleep patterns: Better Overall functioning: Better Adverse Events: No, PEDRITO KHALIL is not experiencing side effects from current pain reliever. a. Nausea: None b. Vomiting: None e. Mental cloudiness: None (migraine and cervical annular tear ) Activities of Daily Living: Yes, it is my opinion that this patient is benefitting from Lyrica therapy. 1 Amended By: Stephanie Rutledge; May 25 2022 9:19 AM ESTActive Problems Abnormal mammogram (793.80) (R92.8) Allergic rhinitis (477.9) (J30.9) Encounter for screening mammogram for breast cancer (V76.12) (Z12.31) Medication monitoring encounter (V58.83) (Z51.81) lyrica Migraine (346.90) (G43.909) Surgical History No history of surgery Family History No pertinent family history Family history of cerebrovascular accident (CVA) (V17.1) (Z82.3) Social History Never a smoker No recent foreign travel Patient has living will (V49.89) (Z78.9) Allergies No Known Drug Allergies Recorded By: Celia Dueñas; 05/13/2020 12:43:29 PM Current Meds Medication NameInstructionReason Ipratropium [place] 0.03 % Nasal SolutionUSE 2 SPRAY(S) IN EACH NOSTRIL THREE TIMES DAILY NEEDED FOR NASAL CAllergic rhinitis Pregabalin 150 MG Oral Capsuletake 1 capsule by mouth twice dailyMigraine Enskyce 0.15-30 MG-MCG Oral Tablet Vitamin C CAPS Vitamin D CAPS Zinc TABS Vitals Vital Signs Recorded: 11May2022 04:11PM Heart Rate68 Skpjxanw587 Gglliwnqt39 Ysmzjk962.34 cm Erbfqs356.9 lb BMI Vchpachfsn26.25 kg/m2 BSA Calculated1.99 Tobacco Useb) No PHQ-2 #1. Over the last 2 weeks have you felt down, depressed or hopeless? (If yes, answer PHQ-9 below)No PHQ-2 #2. Over the last 2 weeks have you felt little interest or pleasure in doing things? (If yes, answer PHQ-9 below)No Physical Exam General: Alert and oriented, No acute distress. Neck: Supple, Non-tender, No lymphadenopathy, No thyromegaly. Respiratory: Lungs are clear to auscultation, Respirations are non-labored, Breath sounds are equal, Symmetrical chest wall expansion. Cardiovascular: Normal rate, Regular rhythm, No murmur. Musculoskeletal Normal gait. Neurologic: Alert, Oriented, No focal deficits. dtr 2+= ue Cognition and Speech: Oriented, Speech clear and coherent, Functional cognition intact. Psychiatric: Cooperative, Appropriate mood AND affect, Normal judgment. 'Scores and Scales' Signatures Electronically signed by : Stephanie Rutledge MD; May 25 2022 9:19AM EST (Author) Normal [employer] Tobacco Screening.on Adult depression screening assessment No [facility] Work Phone: Tobacco use status CPHS b) No M [facility] Work Phone: Mamm - Screening Mammogram w / Tomosynthesison 11-17-2021 MG Breast Screening Normal [facility] Work Phone: OPIATE/OPIOID/BENZO EXTENDED PRESCRIPTION COMPLIANCEon 11-10-2021 6-ACETYLMORPHINE <25 Normal Cutoff <25 [facility] Comment on above: Performed By: #### D SBOP #### [facility] [address] [place] [address] 7-AMINOCLONAZEPAM <25 Normal Cutoff <25 [facility] Comment on above: Performed By: #### D SBOP #### [place] [address] [place] [address] ALPHA-HYDROXYALPRAZOLAM <25 Normal Cutoff <25 [facility] Comment on above: Performed By: #### D SBOP #### [place] [address] [place] [address] ALPHA-HYDROXYMIDAZOLAM <25 Normal Cutoff <25 [facility] Comment on above: Performed By: #### D SBOP #### [facility] [address] [place] [address] ALPRAZOLAM <25 Normal Cutoff <25 [facility] Comment on above: Performed By: #### D SBOP #### [facility] [address] [place] [address] CHLORDIAZEPOXIDE <25 Normal Cutoff <25 [facility] Comment on above: Performed By: #### D SBOP #### [facility] [address] [place] [address] CLONAZEPAM <25 Normal Cutoff <25 [facility] Comment on above: Performed By: #### D SBOP #### [facility] [address] [place] [address] CODEINE <50 Normal Cutoff <50 [facility] Comment on above: Performed By: #### D SBOP #### [facility] [address] [place] [id number] DIAZEPAM <25 Normal Cutoff <25 [facility] Comment on above: Performed By: #### D SBOP #### [facility] [address] [place] [address] EDDP,U <25 Normal Cutoff <25 [facility] Comment on above: Result Comment: The performance characteristics of the Methadone Confirmation, Urine has been validated by the individual laboratory site where testing is performed. It has not been cleared or approved by the FDA. However the FDA has determined that such clearance or approval is not necessary. Our Laboratory is certified under the Clinical Laboratory Improvement Amendments of 1988 (CLIA) as qualified to perform high complexity clinical laboratory testing. Performed By: #### D SBOP #### [facility] [address] [place] [address] FENTANYL CONFIRM,U <2.5 Normal Cutoff<[address].5 [facility] Comment on above: Performed By: #### D SBOP #### [facility] [address] [place] [address] HYDROCODONE <25 Normal Cutoff <25 [facility] Comment on above: Performed By: #### D SBOP #### [facility] [address] [place] [address] HYDROMORPHONE <25 Normal Cutoff <25 [facility], [place], operated by [facility] Comment on above: Performed By: #### D SBOP #### [facility] [address] [place] [address] LORAZEPAM <25 Normal Cutoff <25 [facility] Comment on above: Performed By: #### D SBOP #### [facility] [address] [place] [address] METHADONE,U <25 Normal Cutoff <25 [facility] Comment on above: Performed By: #### D SBOP #### [facility] [address] [place] [address] MIDAZOLAM <25 Normal Cutoff <25 [facility] Comment on above: Performed By: #### D SBOP #### [facility] [address] [place] [address] MORPHINE <50 Normal Cutoff <50 [facility] Comment on above: Performed By: #### D SBOP #### [facility] [address] [place] [address] NORDIAZEPAM <25 Normal Cutoff <25 [facility] Comment on above: Performed By: #### D SBOP #### [facility] [address] [place] [address] NORFENTANYL CONFIRM,U <2.5 Normal Cutoff<2.5 [facility] Comment on above: Result Comment: The performance characteristics of the Fentanyl Confirmation, Urine has been validated by the individual laboratory site where testing is performed. It has not been cleared or approved by the FDA. However the FDA has determined that such clearance or approval is not necessary. Our Laboratory is certified under the Clinical Laboratory Improvement Amendments of 1988 (CLIA) as qualified to perform high complexity clinical laboratory testing. Performed By: #### D SBOP #### [facility] [address] [place] [address] NORHYDROCODONE <25 Normal Cutoff <25 [facility] Comment on above: Performed By: #### D SBOP #### [facility] [address] [place] [address] NOROXYCODONE <25 Normal Cutoff <25 [facility] Comment on above: Performed By: #### D SBOP #### [facility] [address] [place] [address] O-DESMETHYLTRAMADOL,U <50 Normal Cutoff <50 [facility] Comment on above: Result Comment: The performance characteristics of the Tramadol Confirmation, Urine has been validated by the individual laboratory site where testing is performed. It has not been cleared or approved by the FDA. However the FDA has determined that such clearance or approval is not necessary. Our Laboratory is certified under the Clinical Laboratory Improvement Amendments of 1988 (CLIA) as qualified to perform high complexity clinical laboratory testing. Performed By: #### D SBOP #### [facility] [address] [place] [address] OXAZEPAM <25 Normal Cutoff <25 [facility] Comment on above: Performed By: #### D SBOP #### [facility] [address] [place] [address] OXYCODONE <25 Normal Cutoff <25 [facility] Comment on above: Performed By: #### D SBOP #### [facility] [address] [place] [address] OXYMORPHONE <25 Normal Cutoff <25 [facility] Comment on above: Result Comment: The performance characteristics of the Opiate Confirmation, Urine has been validated by the individual laboratory site where testing is performed. It has not been cleared or approved by the FDA. However the FDA has determined that such clearance or approval is not necessary. Our Laboratory is certified under the Clinical Laboratory Improvement Amendments of 1988 (CLIA) as qualified to perform high complexity clinical laboratory testing. Performed By: #### D SBOP #### [facility] [address] [place] [address] TEMAZEPAM <25 Normal Cutoff <25 [facility] Comment on above: Result Comment: The performance characteristics of the Benzodiazepine Confirmation, Urine has been validated by the individual laboratory site where testing is performed. It has not been cleared or approved by the FDA. However the FDA has determined that such clearance or approval is not necessary. Our Laboratory is certified under the Clinical Laboratory Improvement Amendments of 1988 (CLIA) as qualified to perform high complexity clinical laboratory testing. Performed By: #### D SBOP #### [facility] [address] [place] [address] TRAMADOL CONFIRM,U <50 Normal Cutoff <50 [facility] Comment on above: Performed By: #### D SBOP #### [facility] [address] [place] [address] ZOLPIDEM METABOLITE[ZCA] ,U <25 Normal Cutoff <25 [facility] Comment on above: Result Comment: The performance characteristics of the Zolpidem Confirmation, Urine has been validated by the individual laboratory site where testing is performed. It has not been cleared or approved by the FDA. However the FDA has determined that such clearance or approval is not necessary. Our Laboratory is certified under the Clinical Laboratory Improvement Amendments of 1988 (CLIA) as qualified to perform high complexity clinical laboratory testing. Performed By: #### D SBOP #### [facility] [address] [place] [address] ZOLPIDEM,URINE <25 Normal Cutoff <25 [facility] Comment on above: Performed By: #### D SBOP #### [facility] [address] [place] [address] PREGABALIN,URINEon 2 PREGABALIN,URINE 199.5 ug/mL Normal [facility] Comment on above: Result Comment: INTE RPRETIVE INFORMATION: Pregabalin, Urine Positive cutoff: 5.0 ug/mL For medical purposes only; not valid for forensic use. The absence of expected drug(s) and/or drug metabolite(s) may indicate non-compliance, inappropriate timing of specimen collection relative to drug administration, poor drug absorption, diluted/adulterated urine, or limitations of testing. The concentration value must be greater than or equal to the cutoff to be reported as a quantitative result. Interpretive questions should be directed to the laboratory. This test was developed and its performance characteristics determined by [employer]. It has not been cleared or approved by the US Food and Drug Administration. This test was performed in a CLIA certified laboratory and is intended for clinical purposes. Performed By: [employer] [facility] [address] [place] [address] Fur Mixer Operator: Kaylyn Castillo MD Performed By: #### P REGA #### [employer] [address] [place] [address] Laboratory - Chemistry and C hemistry - challengeon 11-04-2021 Creatinine (Body fld) [Mass/Vol] 116.2 mg/dL -[facility] Work Phone: Comment on above: A urine creatinine r esult >= 20 mg/dL is considered valid without suspicion of dilution. Samples with results below this range will automatically reflex to specific gravity testing to verify specimen integrity. Laboratory - Drug toxicology on 11-04-2021 1-Hydroxymidazolam Confirm (U) [Mass/Vol] <25 Cutoff <25 [facility] Work Phone: 7-Ybicsckiye-2,5-Dimethy l-3,3-Diphenylpyrrolidin e (EDDP) Confirm (U) [Mass/Vol] <25 Cutoff <25 [facility] Work Phone: Comment on above: The performance itzel acteristics of the Methadone Confirmation, Urine has been validated by the individual laboratory site where testing is performed. It has not been cleared or approved by the FDA. However the FDA has determined that such clearance or approval is not necessary. Our Laboratory is certified under the Clinical Laboratory Improvement Amendments of 1988 (CLIA) as qualified to perform high complexity clinical laboratory testing. 6-Monoacetylmorphine (6-SEVEN) Confirm (U) [Mass/Vol] <25 Cutoff <25 [facility] Work Phone: 7-Aminoclonazepam Confirm (U) [Mass/Vol] <25 Cutoff <25 [facility] Work Phone: Alpha hydroxyalprazolam Confirm (U) [Mass/Vol] <25 Cutoff <25 [facility] Work Phone: ALPRAZolam Confirm (U) [Mass/Vol] <25 Cutoff <25 [facility] Work Phone: Amphetamines Screen Ql (U) Negative NEGATIVE [facility] Work Phone: Comment on above: CUTOFF LEVEL: 500 NG /ML Cross-reactivity has been reported with high concentrations of the following drugs: buproprion, chloroquine, chlorpromazine, ephedrine, mephentermine, fenfluramine, phentermine, phenylpropanolamine, pseudoephedrine, and propranolol. Barbiturates Screen Ql (U) Negative NEGATIVE [facility] Work Phone: Comment on above: CUTOFF LEVEL: 200 NG /ML Benzoylecgonine Screen Ql (U) Negative NEGATIVE [facility] Work Phone: Comment on above: CUTOFF LEVEL: 150 NG /ML Cannabinoids Screen Ql (U) Negative NEGATIVE [facility] Work Phone: Comment on above: CUTOFF LEVEL: 50 NG/ ML chlordiazePOXIDE Confirm (U) [Mass/Vol] <25 Cutoff <25 [facility] Work Phone: clonazePAM Confirm (U) [Mass/Vol] <25 Cutoff <25 [facility] Work Phone: Codeine Confirm (U) [Mass/Vol] <50 Cutoff <50 [facility] Work Phone: diazePAM Confirm (U) [Mass/Vol] <25 Cutoff <25 [facility] Work Phone: fentaNYL Confirm (U) [Mass/Vol] <2.5 Cutoff<2.5 [facility] Work Phone: HYDROcodone Confirm (U) [Mass/Vol] <25 Cutoff <25 [facility] Work Phone: HYDROmorphone Confirm (U) [Mass/Vol] <25 Cutoff <25 [facility] Work Phone: LORazepam Confirm (U) [Mass/Vol] <25 Cutoff <25 [facility] Work Phone: Methadone Confirm (U) [Mass/Vol] <25 Cutoff <25 [facility] Work Phone: Midazolam Confirm (U) [Mass/Vol] <25 Cutoff <25 [facility] Work Phone: Morphine Confirm (U) [Mass/Vol] <50 Cutoff <50 [facility] Work Phone: Nordiazepam Confirm (U) [Mass/Vol] <25 Cutoff <25 [facility] Work Phone: Norfentanyl Confirm (U) [Mass/Vol] <2.5 Cutoff<2.5 [facility] Work Phone: Comment on above: The performance itzel acteristics of the Fentanyl Confirmation, Urine has been validated by the individual laboratory site where testing is performed. It has not been cleared or approved by the FDA. However the FDA has determined that such clearance or approval is not necessary. Our Laboratory is certified under the Clinical Laboratory Improvement Amendments of 1988 (CLIA) as qualified to perform high complexity clinical laboratory testing. Norhydrocodone Confirm (U) [Mass/Vol] <25 Cutoff <25 [facility] Work Phone: Noroxycodone Confirm (U) [Mass/Vol] <25 Cutoff <25 [facility] Work Phone: Nortramadol (U) [Mass/Vol] <50 Cutoff <50 [facility] Work Phone: Comment on above: The performance itzel acteristics of the Tramadol Confirmation, Urine has been validated by the individual laboratory site where testing is performed. It has not been cleared or approved by the FDA. However the FDA has determined that such clearance or approval is not necessary. Our Laboratory is certified under the Clinical Laboratory Improvement Amendments of 1988 (CLIA) as qualified to perform high complexity clinical laboratory testing. Oxazepam Confirm (U) [Mass/Vol] <25 Cutoff <25 [facility] Work Phone: [phone] oxyCODONE Confirm (U) [Mass/Vol] <25 Cutoff <25 [facility] Work Phone: oxyMORphone Confirm (U) [Mass/Vol] <25 Cutoff <25 [facility] Work Phone: Comment on above: The performance itzel acteristics of the Opiate Confirmation, Urine has been validated by the individual laboratory site where testing is performed. It has not been cleared or approved by the FDA. However the FDA has determined that such clearance or approval is not necessary. Our Laboratory is certified under the Clinical Laboratory Improvement Amendments of 1988 (CLIA) as qualified to perform high complexity clinical laboratory testing. Phencyclidine Ql (U) Negative NEGATIVE [facility] Work Phone: Comment on above: CUTOFF LEVEL: 25 NG/ ML Cross-reactivity has been reported with dextromethorphan. Pregabalin Confirm (U) [Mass/Vol] 199.5 ug/mL [facility] Work Phone: Comment on above: INTERPRETIVE INFORMA TION: Pregabalin, UrinePositive cutoff: 5.0 ug/mLFor medical purposes only; not valid for forensic use.The absence of expected drug(s) and/or drug metabolite(s) may indicate non-compliance, inappropriate timing of specimen collection relative to drug administration, poor drug absorption, diluted/adulterated urine, or limitations of testing. The concentration value must be greater than or equal to the cutoff to be reported as a quantitative result. Interpretive questions should be directed to the laboratory.This test was developed and its performance characteristics determined by [employer]. It has not been cleared or approved by the US Food and Drug Administration. This test was performed in a CLIA certified laboratory and is intended for clinical purposes.Performed By: [employer] [place] [id number] Director: Kaylyn Castillo MD Temazepam Confirm (U) [Mass/Vol] <25 Cutoff <25 [facility] Work Phone: Comment on above: The performance itzel acteristics of the Benzodiazepine Confirmation, Urine has been validated by the individual laboratory site where testing is performed. It has not been cleared or approved by the FDA. However the FDA has determined that such clearance or approval is not necessary. Our Laboratory is certified under the Clinical Laboratory Improvement Amendments of 1988 (CLIA) as qualified to perform high complexity clinical laboratory testing. traMADol Confirm (U) [Mass/Vol] <50 Cutoff <50 [facility] Work Phone: Zolpidem (U) [Mass/Vol] <25 Cutoff <25 [facility]: No Panel Informationon 11-04 <25 Cutoff <25 [facility] Work Phone: Comment on above: The performance itzel acteristics of the Zolpidem Confirmation, Urine has been validated by the individual laboratory site where testing is performed. It has not been cleared or approved by the FDA. However the FDA has determined that such clearance or approval is not necessary. Our Laboratory is certified under the Clinical Laboratory Improvement Amendments of 1988 (CLIA) as qualified to perform high complexity clinical laboratory testing. SEE BELOW -[facility] Work Phone: Comment on above: Drug screen results are presumptive and should not be used to assess compliance with prescribed medication. Definitive confirmatory drug testing has been added to this sample for any positive screen result and will be reported separately. .Toxicology screening results are reported qualitatively. The concentration must be greater than or equal to the cutoff to be reported as positive. The concentration at which the screening test can detect an individual drug or metabolite varies. The absence of expected drug(s) and/or drug metabolite(s) may indicate non-compliance, inappropriate timing of specimen collection relative to drug administration, poor drug absorption, diluted/adulterated urine, or limitations of testing. For medical purposes only; not valid for forensic use. .Interpretive questions should be directed to the laboratory medical directors. OPIATE/OPIOID/BENZO EXTENDED PRESCRIPTION COMPLIANCEon 11-04-2021 AMPHETAMINE SCREEN,U Negative Normal NEGATIVE [facility] Comment on above: Result Comment: CUTO FF LEVEL: 500 NG/ML Cross-reactivity has been reported with high concentrations of the following drugs: buproprion, chloroquine, chlorpromazine, ephedrine, mephentermine, fenfluramine, phentermine, phenylpropanolamine, pseudoephedrine, and propranolol. Performed By: #### D SBOP #### [facility] [address] [place] [address] BARBITURATES SCREEN,U Negative Normal NEGATIVE [facility] Comment on above: Result Comment: CUTO FF LEVEL: 200 NG/ML Performed By: #### D SBOP #### [facility] [address] [place] [address] CANNABINOIDS SCREEN,U Negative Normal NEGATIVE [facility] Comment on above: Result Comment: CUTO FF LEVEL: 50 NG/ML Performed By: #### D SBOP #### [facility] [address] [place] [address] COCAINE METABOLITE SCREEN,U Negative Normal NEGATIVE [facility] Comment on above: Result Comment: CUTO FF LEVEL: 150 NG/ML Performed By: #### D SBOP #### [facility] [address] [place] [address] Creatinine [Mass/Vol] 116.2 mg/dL Normal [facility] Comment on above: Result Comment: A ur ine creatinine result >= 20 mg/dL is considered valid without suspicion of dilution. Samples with results below this range will automatically reflex to specific gravity testing to verify specimen integrity. Performed By: #### D SBOP #### [facility] [address] [place] [address] DRUG SCREEN COMMENT. SEE BELOW Normal [facility] Comment on above: Result Comment: Drug screen results are presumptive and should not be used to assess compliance with prescribed medication. Definitive confirmatory drug testing has been added to this sample for any positive screen result and will be reported separately. . Toxicology screening results are reported qualitatively. The concentration must be greater than or equal to the cutoff to be reported as positive. The concentration at which the screening test can detect an individual drug or metabolite varies. The absence of expected drug(s) and/or drug metabolite(s) may indicate non-compliance, inappropriate timing of specimen collection relative to drug administration, poor drug absorption, diluted/adulterated urine, or limitations of testing. For medical purposes only; not valid for forensic use. . Interpretive questions should be directed to the laboratory medical directors. Performed By: #### D SBOP #### [facility] [address] [place] [id number] PCP SCREEN,U Negative Normal NEGATIVE [facility] Comment on above: Result Comment: CUTO FF LEVEL: 25 NG/ML Cross-reactivity has been reported with dextromethorphan. Performed By: #### D SBOP #### [facility] [address] [place] [id number] Office Visit (Family Medicin e)on 11-03-2021 Follow-up visit Diagnoses/Problems Migraine (346.90) (G43.909) Medication monitoring encounter (V58.83) (Z51.81) lyrica Allergic rhinitis (477.9) (J30.9) Encounter for screening mammogram for breast cancer (V76.12) (Z12.31) Orders Allergic rhinitis Renew: Ipratropium [place] 0.03 % Nasal Solution; USE 2 SPRAY(S) IN EACH NOSTRIL THREE TIMES DAILY NEEDED FOR NASAL C Encounter for screening mammogram for breast cancer Mamm - Screening Mammogram w/ Tomosynthesis; Status:Hold For - Scheduling; Requested for:03Nov2021; Radiologist to Determine Optimal Study : Y What are the patient's signs and symptoms ? : Annual Screening Mammogram Medication monitoring encounter Follow-up visit in 6 months Outpatient Follow-up Status: Hold For - Scheduling Requested for: 03Nov2021 OPIATE/OPIOID/BENZO [EXTENDED] PRESCRIPTION COMPLIANCE; Status:In Progress - Specimen/Data Collected; Done: 03Nov2021 Pregabalin, Urine; Status:In Progress - Specimen/Data Collected; Done: 03Nov2021 Migraine Renew: Pregabalin 150 MG Oral Capsule; take 1 capsule by mouth twice daily Chief Complaint 6 month med check, no concerns. 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 I have considered the risks of abuse, dependence, addiction and diversion. Is the patient prescribed a combination of a benzodiazepine and opioid? No. Last urine drug screening date/ordered today: 11/03/21 Results of last screen: Results as expected. Controlled Substance Agreement: I have printed this form and reviewed each line item with the patient and the patient has verbalized understanding. Date of the last Controlled Substance Agreement: 05/15/2021 THEE What is the patient?s goal of therapy? migraines. Is this being achieved with current treatment? yes. Pain Assessment and Documentation Tool (PADT) Date of Assessment: 11/03/21 Analgesia: Patient reports her pain level on average during the past week is 0 on a 0 - 10 scale. Patient reports that her pain level at its worst during the past week was 0 on a 0 -10 scale. Patient states that the amount of pain relief she is now obtaining from her current pain reliever(s) is enough to make a real difference in her life. Query to clinician: Is the patient's pain relief clinically significant? Yes Activities of Daily Living: Physical functioning: Better Mood: Same Sleep patterns: Same Overall functioning: Better Adverse Events: No, PEDRITO KHALIL is not experiencing side effects from current pain reliever. a. Nausea: None b. Vomiting: None e. Mental cloudiness: None (mid thoracic back comes and goes worse in summer due to yard work ) Active Problems Allergic rhinitis (477.9) (J30.9) Encounter for screening mammogram for breast cancer (V76.12) (Z12.31) Medication monitoring encounter (V58.83) (Z51.81) lyrica Migraine (346.90) (G43.909) Surgical History No history of surgery Family History No pertinent family history Family history of cerebrovascular accident (CVA) (V17.1) (Z82.3) Social History Never a smoker No recent foreign travel Patient has living will (V49.89) (Z78.9) Allergies No Known Drug Allergies Recorded By: Celia Dueñas; 05/13/2020 12:43:29 PM Current Meds Medication NameInstructionReason Pregabalin 150 MG Oral Capsuletake 1 capsule by mouth twice dailyMigraine Enskyce 0.15-30 MG-MCG Oral Tablet Ipratropium [place] 0.03 % Nasal SolutionUSE 2 SPRAY(S) IN EACH NOSTRIL THREE TIMES DAILY NEEDED FOR NASAL C Vitamin C CAPS Vitamin D CAPS Zinc TABS Vitals Vital Signs Recorded: 03Nov2021 04:16PM Heart Rate60 Elekknlq697 Ftkgbxond38 Lixqwh620.34 cm Fhygqb25.43 kg BMI Gewxbojeob98.2 kg/m2 BSA Calculated1.95 Tobacco Useb) No Physical Exam General: Alert and oriented, No acute distress. Neck: Supple, Non-tender, No lymphadenopathy, No thyromegaly. Respiratory: Lungs are clear to auscultation, Respirations are non-labored, Breath sounds are equal, Symmetrical chest wall ex (more content not included)... Normal [employer] Tobacco Screening.on 022 Tobacco use status [facility] b) No [facility] Work Phone: MG Breast Tomosynthesis Scr Blon 11-20-2019 MG Breast Tomosynthesis Scr Bl Patient Name: PEDRITO KHALIL Mammography Exam Date/Time 11/20/2019 15:38:17 EDT Exam MG Breast Tomosynthesis BI Scr Ordering Physician MD THIERNO, JOE PENN Accession Number [id number] CPT4 Codes 11904 (MG Breast Tomosynthesis Scr Bl), 03887 (MG MAMMO 2D SCREENING) Reason For Exam screening Report TIME SINCE LAST MAMMOGRAM: Last mammogram was performed 1 year and 4 months ago. REASON FOR EXAM: screening, asymptomatic. PROCEDURE: MG BREAST TOMOSYNTHESIS BL SCR: NOVEMBER 20, 2019 - 2D/3D Procedure 3D Bilateral CC and MLO view(s) were taken. 2D Bilateral CC and MLO view(s) were taken. Prior study comparison: July 22, 2018, bilateral MG breast tomosynthesis bl scr performed at [facility]. TISSUE DENSITY: BIRADS C - The breast tissue is heterogeneously dense, which could obscure underlying abnormalities. . FINDINGS: No suspicious masses, architectural distortions or suspiciously clustered microcalcifications are identified. There is no evidence of skin thickening or nipple retraction. There are no significant changes when compared with prior studies. Markings on images: BB's = Nipples; skin lesions Open washoe = Palpable Line = Scar 2D digital mammography and tomosynthesis imaging were performed and reviewed with CAD. ASSESSMENT: Category 1 Negative RECOMMENDATION: Routine screening mammogram of both breasts in 1 year. . Report Dictated on Cancer Risk Assessment: This risk assessment is based on patient provided information collected in a risk survey taken at the time of this examination. Lifetime breast cancer risk: 12.41% - If greater than or equal to 20%, consider annual mammogram and annual screening Breast MRI or follow up in high risk clinic. Is the patient at elevated risk based on the HBOC criteria? Yes (Hereditary Breast and Ovarian Cancer) - If yes, consider genetic counseling and testing with high risk follow up. HNPCC mutation risk (Kincaid Syndrome): 1.1% - if greater than or equal to 5%, consider genetic counseling, testing and screening colonoscopy. Final Signed Date and Time: 11/21/2019 7:44 am Signed by: MD EDOUARD, FATEMEH Thrasher [facility] SARS-CoV-2 (COVID-19) Ag IA. rapid Ql (Resp) SARS-CoV-2 Antigen (Rapid) SARS-CoV-2 (COVID 19) [facility] Work Phone: Vital Signs Date Time Vital Sign Value Performing Clinician Faci lity 11-20-2024 16:18-0400 Body mass index (BMI) [Ratio] 26.14 kg/m2 Stephanie Rutledge MD Work Phone: [facility] 11-20-2024 16:18-0400 Body weight 82.64 kg Stephanie Rutledge MD Work Phone: [facility] 11-20-2024 16:18-0400 Diastolic blood pressure 82 mm[Hg] Stephanie Rutledge MD Work Phone: [facility] 11-20-2024 16:18-0400 Heart rate 60 /min Stephanie Rutledge MD Work Phone: [facility] 11-20-2024 16:18-0400 SaO2% (BldA) [Mass fraction] 96 % Stephanie Rutledge MD Work Phone: [facility] 11-20-2024 16:18-0400 Systolic blood pressure 130 mm[Hg] Stephanie Rutledge MD Work Phone: [facility] 05-22-2024 16:19-0500 Body mass index (BMI) [Ratio] 24.72 kg/m2 Stephanie Rutledge MD Work Phone: [facility] 05-22-2024 16:19-0500 Body weight 78.16 kg Stephanie Rutledge MD Work Phone: [facility] 05-22-2024 16:19-0500 Diastolic blood pressure 68 mm[Hg] Stephanie Rutledge MD Work Phone: [facility] 05-22-2024 16:19-0500 Heart rate 61 /min Stephanie Rutledge MD Work Phone: [facility] 05-22-2024 16:19-0500 SaO2% (BldA) [Mass fraction] 96 % Stephanie Rutledge MD Work Phone: [facility] 05-22-2024 16:19-0500 Systolic blood pressure 118 mm[Hg] Stephanie Rutledge MD Work Phone: [facility] 11-19-2023 16:12-0400 Body mass index (BMI) [Ratio] 23.56 kg/m2 Stephanie Rutledge MD Work Phone: [facility] 11-19-2023 16:12-0400 Body weight 74.48 kg Stephanie Rutledge MD Work Phone: [facility] 11-19-2023 16:12-0400 Diastolic blood pressure 62 mm[Hg] Stephanie Rutledge MD Work Phone: [facility] 11-19-2023 16:12-0400 Heart rate 80 /min Stephanie Rutledge MD Work Phone: [facility] 11-19-2023 16:12-0400 SaO2% (BldA) [Mass fraction] 98 % Stephanie Rutledge MD Work Phone: [facility] 11-19-2023 16:12-0400 Systolic blood pressure 102 mm[Hg] Stephanie Rutledge MD Work Phone: [facility] 11-09-2022 16:05-0400 Body height 177.8 cm Stephanie Rutledge MD Work Phone: [facility] 11-09-2022 16:05-0400 Body mass index (BMI) [Ratio] 23.57 kg/m2 Stephanie Rutledge MD Work Phone: [facility] 11-09-2022 16:05-0400 Body weight 74.53 kg Stephanie Rutledge MD Work Phone: [facility] 11-09-2022 16:05-0400 Diastolic blood pressure 70 mm[Hg] Stephanie Rutledge MD Work Phone: [facility] 11-09-2022 16:05-0400 Heart rate 60 /min Stephanie Rutledge MD Work Phone: [facility] 11-09-2022 16:05-0400 Systolic blood pressure 106 mm[Hg] Stephanie Rutledge MD Work Phone: [facility] 05-11-2022 16:11-0500 Body height 180.34 cm Stephanie Rutledge Work Phone: [facility] Work Phone: 05-11-2022 16:11-0500 Body mass index (BMI) [Ratio] 24.25 kg/m2 Stephanie Rutledge Work Phone: [facility] Work Phone: 05-11-2022 16:11-0500 Body surface area Derived from formula 1.99 m2 Stephanie Rutledge Work Phone: [facility] Work Phone: 05-11-2022 16:11-0500 Body weight 78.88 kg Stephanie Rutledge Work Phone: [facility] Work Phone: 05-11-2022 16:11-0500 Diastolic blood pressure 82 mm[Hg] Stephanie Rutledge Work Phone: [facility] Work Phone: 05-11-2022 16:11-0500 Heart rate 68 /min Stephanie L Aamir Work Phone: [facility] Work Phone: 05-11-2022 16:11-0500 Systolic blood pressure 128 mm[Hg] Stephanie L Aamir Work Phone: [facility] Work Phone: 11-03-2021 16:16-0400 Body height 180.34 cm Stephanie L Aamir Work Phone: [facility] Work Phone: 11-03-2021 16:16-0400 Body mass index (BMI) [Ratio] 23.2 kg/m2 Stephanie L Aamir Work Phone: [facility] Work Phone: 11-03-2021 16:16-0400 Body surface area Derived from formula 1.95 m2 Stephanie L Aamir Work Phone: [facility] Work Phone: 11-03-2021 16:16-0400 Body weight 75.43 kg Stephanie L Aamir Work Phone: [facility] Work Phone: 11-03-2021 16:16-0400 Diastolic blood pressure 78 mm[Hg] Stephanie L Aamir Work Phone: [facility] Work Phone: 11-03-2021 16:16-0400 Heart rate 60 /min Stephanie L Aamir Work Phone: [facility] Work Phone: 11-03-2021 16:16-0400 Systolic blood pressure 120 mm[Hg] Stephanie L Aamir Work Phone: [facility] Work Phone: Encounters Encounter Date Encounter Type Care Provider Facility Start: 11-20-2024 End: 11-20-2024 Office outpatient visit 25 minutes Stephanie Rutledge MD Work Phone: [facility] Comment on above: Long-term use of hig h-risk medication (Primary Dx); Encounter for long-term (current) use of medications; Chronic neck pain; Other migraine without status migrainosus, not intractable; Encounter for screening mammogram for breast cancer Start: 11-20-2024 End: 11-20-2024 ambulatory [facility] Start: 11-15-2024 ambulatory [facility] Facility: [facility] Start: 05-22-2024 End: 05-22-2024 Office outpatient visit 15 minutes Stephanie Rutledge MD Work Phone: [facility] Comment on above: Other migraine witho ut status migrainosus, not intractable; Chronic neck pain Start: 05-22-2024 End: 05-22-2024 ambulatory [facility] Start: 12-24-2023 End: 12-24-2023 ambulatory Stephanie Rutledge Facility:[facility] Start: 11-19-2023 End: 11-19-2023 Office outpatient visit 25 minutes Stephanie Rutledge MD Work Phone: [facility] Comment on above: Medication monitorin g encounter (Primary Dx); Other migraine without status migrainosus, not intractable; Chronic neck pain; Encounter for screening mammogram for breast cancer Start: 06-01-2023 End: 06-03-2023 ambulatory [facility] Work Phone: Start: 06-01-2023 End: 06-03-[address] [facility] Start: 04-16-2023 End: 05-04-2023 ambulatory [facility] Work Phone: Start: 04-16-2023 End: 05-04-[address] [facility] Start: 03-27-2023 End: 04-03-[address] [facility] Start: 11-25-[address] Stephanie Campo acility:[id number] Start: 11-09-2022 End: 11-09-2022 Office outpatient visit 25 minutes Stephanie Rutledge MD Work Phone: [facility] Comment on above: Abnormal mammogram o f left breast (Primary Dx); Medication monitoring encounter; Other migraine without status migrainosus, not intractable; Chronic neck pain Start: 05-25-2022 Chart Update Stephanie garcia Work Phone: [facility] Work Phone: Start: 05-25-[address] Stephanie Campo acility:[id number] Start: 05-11-2022 Office outpatient vi sit 15 minutes Stephanie Rutledge Work Phone: [facility] Work Phone: Start: 05-11-2022 ambulatory Stephanie Rutledge Facility: [id number] Start: 03-30-2022 End: 04-03-2022 ambulatory [facility] Work Phone: Start: 03-30-2022 End: 04-03-2022 [facility] Start: 12-11-2021 End: 01-01-[address] [facility] Start: 12-11-2021 Registered Recurring [facility] Start: 12-04-2021 End: 01-01-2022 [facility] Start: 11-27-2021 [facility] Start: 11-24-2021 End: 12-02-2021 [facility] Start: 11-17-2021 AUDIT Stephanie garcia Work Phone: [facility] Work Phone: Start: 11-10-2021 Chart Update Stephanie garcia Work Phone: [facility] Work Phone: Start: 11-03-2021 Office outpatient vi sit 25 minutes Stephanie Rutledge Work Phone: [facility] Work Phone: Start: 11-03-2021 ambulatory Stephanie Rutledge Facility: [id number] Start: 10-30-2021 End: 11-01-2021 [facility] Start: 10-30-2021 [facility] Start: 10-28-2021 End: 11-01-2021 [facility] Start: 10-02-2021 End: 10-02-[address] [facility] Start: 05-15-2021 ambulatory Stephnaie Rutledge Facility: [id number] Start: 11-20-2019 End: 11-20-2019 Subsequent hospital visit by physician Joe Webb Work Phone: [facility] Comment on above: Arrived Procedures Date Procedure Procedure Detail Performing Clinician Start: 12-24-2023 Mammography Stephanie guerrier MD Work Phone: Start: 11-09-2023 Lipid 1996 panel - S janine or Plasma Stephanie Rutledge MD Work Phone: Start: 06-01-2023 Viral antigen assay Start: 04-16-2023 Viral antigen assay Start: 03-27-2023 Viral antigen assay Start: 11-25-2022 Mammography Stephanie guerrier MD Work Phone: Start: 11-03-2022 Lipid 1996 panel - S janine or Plasma Stephanie Rutledge MD Work Phone: Start: 05-25-2022 Mammography Stephanie guerrier MD Work Phone: Start: 11-27-2021 End: 11-27-2021 Viral antigen assay Start: 10-30-2021 End: 10-30-2021 Viral antigen assay Start: 10-02-2021 End: 10-02-2021 Viral antigen assay No history of surgery Ella Rutledge Work Phone: Viral antigen assay Plan of Treatment Date Care Activity Detail Author Start: 11-08-2028 Lipid panel Lipid Panel [facility] Start: 11-27-2027 Zoster Vaccines (1 of 2) Zoste r Vaccines (1 of 2) [facility] Start: 11-04-2027 Lipid panel Lipid Panel [facility] Start: 05-22-2026 Screening for malign ant neoplasm of colon [facility] Start: 06-04-2025 End: 06-04-2025 Patient encounter procedure 06/04/2025 4:20 PM EST Office Visit [facility] [address] [place] [phone] Stephanie Rutledge MD [address] [facility] [place] [address] [facility] Start: 12-23-2024 Screening for malign ant neoplasm of breast Mammogram [facility] Start: 11-20-2024 End: 01-20-2026 DBT Breast - bilateral BI mammo bilateral screening tomosynthesis Imaging Routine Encounter for screening mammogram for breast cancer Expected: 11/20/2024, Expires: 01/20/2026 [facility] Service Area Work Phone: Comment on above: Expected: 11/20/2024 , Expires: 01/20/2026 Start: 11-20-2024 End: 11-20-2025 Pregabalin [Mass/volume] in Urine by Confirmatory method Pregabalin,Urine Lab Routine Long-term use of high-risk medication Encounter for long-term (current) use of medications Expected: 11/20/2024 (Approximate), Expires: 11/20/2025 [facility] Work Phone: Comment on above: Expected: 11/20/2024 (Approximate), Expires: 11/20/2025 Start: 05-22-2024 End: 05-22-2024 Patient encounter procedure 05/22/2024 4:20 PM EST Office Visit [facility] [address] [place] [phone] Stephanie Rutledge MD [address] [facility] [place] [address] [facility] Start: 03-05-2024 COVID-19 Vaccine ( season) COVID-19 Vaccine ( season) [facility] Start: 2023 Screening for malign ant neoplasm of breast Mammogram [facility] Start: 11-19-2023 End: 01-18-2025 DBT Breast - bilateral BI mammo bilateral screening tomosynthesis Imaging Routine Encounter for screening mammogram for breast cancer Expected: 11/19/2023, Expires: 01/18/2025 [facility] Work Phone: Comment on above: Expected: 11/19/2023 , Expires: 01/18/2025 Start: 11-19-2023 End: 11-18-2024 Pregabalin [Mass/volume] in Urine by Confirmatory method Pregabalin,Urine Lab Routine Medication monitoring encounter Expected: 11/19/2023 (Approximate), Expires: 11/18/2024 [facility] Service Area Work Phone: Comment on above: Expected: 11/19/2023 (Approximate), Expires: 11/18/2024 Start: 05-25-2023 DTaP/Tdap/Td Vaccine s (2 - Td or Tdap) DTaP/Tdap/Td Vaccines (2 - Td or Tdap) [facility] Start: 05-25-2023 Screening for malign ant neoplasm of breast Mammogram [facility] Start: 05-17-2023 End: 05-17-2023 Patient encounter procedure 05/17/2023 4:40 PM EST Office Visit [facility] [address] [place] [phone] Stephanie Rutledge MD [address] [facility] [place] [address] [facility] Start: 03-05-2023 COVID-19 Vaccine ( season) COVID-19 Vaccine ( season) [facility] Start: 11-09-2022 EPV, Provider: Stephanie Rutledge, Status: Pen, Time: 4:20 PM EPV, Provider: Aamir,Stephanie, Status: Pen, Time: 4:20 PM [facility] Work Phone: Start: 11-09-2022 End: 11-10-2023 Drugs of abuse screen W Reflex confirm panel - Urine [facility] Work Phone: Comment on above: Expected: 11/09/2022 (Approximate), Expires: 11/10/2023 Start: 11-09-2022 End: 01-10-2024 MG Breast - bilateral Diagnostic BI mammo bilateral diagnostic Imaging Routine Abnormal mammogram of left breast Expected: 11/09/2022, Expires: 01/10/2024 [facility] Service Area Work Phone: Comment on above: Expected: 11/09/2022 , Expires: 01/10/2024 Start: 05-11-2022 FUV, Provider: Stephanie Rutledge, Status: Pen, Time: 4:20 PM FUV, Provider: Stephanie Rutledge, Status: Pen, Time: 4:20 PM [facility] Work Phone: Start: 03-05-2020 Influenza vaccination Flu vacc ine (Season Ended) [place], [place] Start: 2017 Lipid panel Lipid screen [place], [place] Start: 1998 Screening for malign ant neoplasm of cervix [facility] Start: 1996 DTaP/Tdap/Td vaccine (1 - Tdap) DTaP/Tdap/Td vaccine (1 - Tdap) [place], [place] Start: 1996 Hepatitis B Vaccines (1 of 3 - 19+ 3-dose series) Hepatitis B Vaccines (1 of 3 - 19+ 3-dose series) [facility] Start: 11-27-1995 Diabetes mellitus screening Diabetes Screening [facility] Start: 11-27-1995 Hepatitis C screening Hepatitis C Sc reening [facility] Start: 1992 [facility] [place] [place] Start: 1978 MMR Vaccines (1 of 1 - Standard series) MMR Vaccines (1 of 1 - Standard series) [facility] Start: 05-29-1978 COVID-19 Vaccine (#1) COVID-19 Vacci ne (#1) [facility] Start: 1977 Hepatitis B Vaccines (1 of 3 - 3-dose series) Hepatitis B Vaccines (1 of 3 - 3-dose series) [facility] Start: 1977 HIV screening HIV Screening [facility] Start: 1977 Screening for malign ant neoplasm of colon [facility] Start: 1977 Yearly Adult Physical Yearly Adult P hysical [facility] Confirmation Opiate/Opioid/Benzo Prescription Compliance Confirmation Opiate/Opioid/Benzo Prescription Compliance Lab Routine Medication monitoring encounter 11/19/2023 4:29 PM EDT [facility] Work Phone: OOB Internal Tracking OOB [employer] Tracking Lab Routine Medication monitoring encounter 11/19/2023 4:29 PM EDT [facility] Work Phone: Opiate/Opioid/Benzo Prescription Compliance Opiate/Opioid/Benzo Prescription Compliance Lab Routine Medication monitoring encounter 11/19/2023 4:29 PM EDT [facility] Work Phone: Opiate/Opioid/Benzo Prescription Compliance Opiate/Opioid/Benzo Prescription Compliance Lab Routine Long-term use of high-risk medication Encounter for long-term (current) use of medications Ordered: 11/20/2024 [facility] Work Phone: Comment on above: Ordered: 11/20/2024 Screen Opiate/Opioid/Benzo Prescription Compliance Screen Opiate/Opioid/Benzo Prescription Compliance Lab Routine Medication monitoring encounter 11/19/2023 4:29 PM T [facility] Work Phone: End: 11-20-2019 Screening digital breast tomosynthesis bi [employer] Digital Screen Bilateral Imaging Routine Once for 1 Occurrences starting 11/20/2019 until 11/20/[address] [facility] Comment on above: Once for 1 Occurrenc es starting 11/20/2019 until 11/20/2019 Screening digital br east tomosynthesis bi [employer] Digital Screen Bilateral Imaging Routine 11/20/2019 3:[facility] Immunizations Immunization Date Immunization Notes Care Provider Chivo nunez 04-24-2024 influenza, seasonal, injectable, preservative free Stephanie Rutledge MD Work Phone: [facility] Work Phone: 04-12-2023 influenza, injectabl e, quadrivalent, preservative free [facility] 05-20-2022 influenza, injectabl e, quadrivalent, preservative free [facility] 05-20-2022 influenza, seasonal, injectable Stephanie Rutledge MD Work Phone: [facility] Work Phone: 04-14-2021 influenza virus vaccine, unspecified formulation Stephanie Rutledge Work Phone: [facility] Work Phone: Comment on above: Series: 04-14-2021 influenza, seasonal, injectable Stephanie Rutledge Work Phone: [facility] Work Phone: Comment on above: Series: 04-09-2021 influenza, injectabl e, quadrivalent, preservative free [facility] 04-09-2021 influenza, seasonal, injectable [facility] Work Phone: 04-09-2021 influenza, seasonal, injectable, preservative free Stephanie Rutledge MD Work Phone: [facility] Work Phone: 09-04-2020 influenza, injectabl e, quadrivalent, preservative free [facility] 09-04-2020 influenza, seasonal, injectable [facility] Work Phone: 09-04-2020 influenza, seasonal, injectable, preservative free Stephanie Rutledge Work Phone: [facility] Work Phone: 05-09-2019 Influenza, injectabl e, Madin [place] Canine Kidney, preservative free, quadrivalent Stephanie Rutledge Work Phone: [facility] Work Phone: 04-26-2018 influenza, injectabl e, quadrivalent, preservative free Stephanie L Aamir Work Phone: [facility] Work Phone: 04-21-2017 influenza, injectabl e, quadrivalent, contains preservative Stephanie L Aamir Work Phone: [facility] Work Phone: 04-06-2015 influenza, seasonal, injectable Stephanie L Aamir Work Phone: [facility] Work Phone: 05-25-2013 tetanus toxoid, redu melodie diphtheria toxoid, and acellular pertussis vaccine, adsorbed Stephanie L Aamir Work Phone: [facility] Work Phone: Comment on above: Series: Payers Date Payer Category Payer Self-pay [id number] 2022 Managed Care (Private) [facility] [id number] 2022 Unknown [id number] 2020 Unknown [id number] 2020 Unknown 2020 Unknown [id number] 2001 Unknown [facility] [id number] 1977 Unknown [id number] 1977 Unknown [id number] 1977 Unknown [id number] 1977 Unknown [id number] 1977 Unknown [id number] 1977 Unknown [id number] 1977 Unknown [id number] Unknown [id number] Unknown [id number] Unknown [id number] Social History Date Type Detail Facility Tobacco smoking stat us MNIS Unknown if ever smoked [place], [place] Start: 1975 Sex Assigned At Not on file [place] Start: 1975 Sex Assigned At Female [facility] Start: 11-09-2022 End: 11-20-2024 Never a smoker Never a smoker [facility] Start: 11-09-2022 Tobacco smoking status MNIS Never smoked tobacco [facility] Work Phone: Start: 11-09-2022 Tobacco use and exposure Smokeless tobacco non-user [facility] Work Phone: Start: 11-09-2022 End: 11-20-2024 Alcohol intake Ex-drinker (finding) [facility] Work Phone: Start: 11-09-2022 End: 11-20-2024 Tobacco use panel [facility] Start: 10-30-2022 End: 11-19-2023 Exposure to SARS-CoV-2 (event) Not sure [facility] Start: 05-15-2023 Gender identity Identifies as female gender (finding) [facility] Work Phone: Start: 05-15-2023 Sexual orientation Heterosexual (finding) [facility] Work Phone: Functional Status Date Assessment Result Facility 11-20-2024 Patient Health Quest ionnaire 2 item (PHQ-2) [Reported] [facility] Work Phone: Clinical Notes 11-09-2022 to 11-20-2024 Stephanie Rutledge MD - 11/20/2024 4:20 PM EDRickey Rutledge MD - 05/22/2024 4:20 PM Jane Rutledge MD - 11/19/2023 4:20 PM EDRickey Rutledge MD - 11/09/2022 4:20 PM EDT Note Date & Type Note Facility 11-20-2024 History of Present illness Narrative Subjective Patient ID: Pedrito Khalil is a 48 y.o. female who presents for Migraine and Chronic neck pain (UDS needed). HPI Patient Health Questionnaire-2 Score: 0 (11/20/2024 4:18 PM) OARRS: Stephanie Rutledge MD on 11/20/2024 I have personally reviewed the OARRS report for Pedrito Khalil. I have considered the risks of abuse, dependence, addiction and diversion Is the patient prescribed a combination of a benzodiazepine and opioid? No Last Urine Drug Screen / ordered today: yes Results are as expected. November 2023 Controlled Substance Agreement: Date of the Last Agreement: November printed and reviewed November 19, 2023 Reviewed Controlled Substance Agreement including but not limited to the benefits, risks, and alternatives to treatment with a Controlled Substance medication(s). Lyrica: What is the patient's goal of therapy? neck and migraine pain Is this being achieved with current treatment? Yes Pain Assessment: Analgesia What was your pain level on average during the past week?: 2 What was your pain level at its worst during the past week?: 4 What percentage of your pain has been relieved during the past week?: 75 % Is the amount of pain relief you are now obtaining from your current pain relievers enough to make a real difference in your life?: Y Query to Clinician: Is the patient's pain relief clinically significant?: Yes Activities of Daily Living Physical Functioning: Better Family Relationships: Same Social Relationships: Same Mood: same Sleep Patterns: same Overall Functioning: Better Adverse Events Is patient experiencing any side effects from current pain relievers?: N Patient's Overall Severity of Side Effects: None Assessment Is your overall impression that this patient is benefiting from opioid therapy?: not on opioid Specific Analgesic Plan: Continue present regimen Migraine without Aura Last month has 1 to 2 PIERSON none debilitating in the last month Neck pain left shoulder weakness occ burning pain Review of Systems Cardiovascular: Negative for chest pain and palpitations. Gastrointestinal: Negative for constipation and diarrhea. Endocrine: Negative for polydipsia and polyphagia. Genitourinary: Negative for difficulty urinating. Objective Visit Vitals BP 130/82 Pulse 60 Wt 82.6 kg (182 lb 3.2 oz) SpO2 96% BMI 26.14 kg/m Smoking Status Never BSA 2.02 m Physical Exam Vitals reviewed. Constitutional: Appearance: Normal appearance. HENT: Head: Normocephalic and atraumatic. Eyes: Conjunctiva/sclera: Conjunctivae normal. Cardiovascular: Rate and Rhythm: Normal rate and regular rhythm. Pulmonary: Effort: Pulmonary effort is normal. Breath sounds: Normal breath sounds. Musculoskeletal: Cervical back: Neck supple. Skin: General: Skin is warm and dry. Neurological: General: No focal deficit present. Mental Status: She is alert and oriented to person, place, and time. Psychiatric: Mood and Affect: Mood normal. Behavior: Behavior normal. Thought Content: Thought content normal. Judgment: Judgment normal. Assessment/Plan Diagnoses and all orders for this visit: Long-term use of high-risk medication - Opiate/Opioid/Benzo Prescription Compliance - Pregabalin,Urine; Future Encounter for long-term (current) use of medications - Opiate/Opioid/Benzo Prescription Compliance - Pregabalin,Urine; Future Chronic neck pain - pregabalin (Lyrica) 150 mg capsule; Take 1 capsule (150 mg) by mouth 2 times a day. Other migraine without status migrainosus, not intractable - pregabalin (Lyrica) 150 mg capsule; Take 1 capsule (150 mg) by mouth 2 times a day. Encounter for screening mammogram for breast cancer - BI mammo bilateral screening tomosynthesis; Future Stephanie Rutledge MD 11/20/24 4:40 PM documented in this encounter [facility] Work Phone: 05-22-2024 History of Present illness Narrative Subjective Patient ID: Pedrito Khalil is a 48 y.o. female who presents for Migraines (6 mo; having 2 headaches a month). 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 Neuroforamina are patent. C6 -- 7: Small central protrusion. Central canal and neuroforamina are normal. C7 -- T1: Central canal and neuroforamina are normal. OARRS: Stephanie Rutledge MD on 05/22/2024 I have personally reviewed the OARRS report for Pedrito Khalil. I have considered the risks of abuse, dependence, addiction and diversion Is the patient prescribed a combination of a benzodiazepine and opioid? No Last Urine Drug Screen / ordered today: yes Results are as expected. November 2023 Lyrica last dose was Controlled Substance Agreement: Date of the Last Agreement: November printed and reviewed November 19, 2023 Reviewed Controlled Substance Agreement including but not limited to the benefits, risks, and alternatives to treatment with a Controlled Substance medication(s). Lyrica: What is the patient's goal of therapy? neck and migraine pain Is this being achieved with current treatment? Yes Pain Assessment: Analgesia What was your pain level on average during the past week?: 2 from neck pain What was your pain level at its worst during the past week?: 4 What percentage of your pain has been relieved during the past week?: 50 % Is the amount of pain relief you are now obtaining from your current pain relievers enough to make a real difference in your life?: Y Query to Clinician: Is the patient's pain relief clinically significant?: Yes Activities of Daily Living Physical Functioning: Better Family Relationships: Same Social Relationships: Same Mood: same Sleep Patterns: same Overall Functioning: Better Adverse Events Is patient experiencing any side effects from current pain relievers?: N Patient's Overall Severity of Side Effects: None Assessment Is your overall impression that this patient is benefiting from opioid therapy?: Yes Specific Analgesic Plan: Continue present regimen Last month has 2 PIERSON none debilitating in the last 6 month Takes ibuprofen 400 mg prn Neck pain left shoulder weakness occ burning pain with lifting and pulling of arms feels some weakness 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 Constitutional: Appearance: Normal appearance. HENT: Head: Normocephalic and atraumatic. Eyes: Conjunctiva/sclera: Conjunctivae normal. Cardiovascular: Rate and Rhythm: Normal rate and regular rhythm. Pulmonary: Effort: Pulmonary effort is normal. Breath sounds: Normal breath sounds. Musculoskeletal: Cervical back: Neck supple. Skin: General: Skin is warm and dry. Neurological: General: No focal deficit present. Mental Status: She is alert and oriented to person, place, and time. Gait: Gait normal. Deep Tendon Reflexes: Reflexes normal. Psychiatric: Mood and Affect: Mood normal. Behavior: Behavior normal. Thought Content: Thought content normal. Judgment: Judgment normal. Assessment/Plan Diagnoses and all orders for this visit: Other migraine without status migrainosus, not intractable - pregabalin (Lyrica) 150 mg capsule; Take 1 capsule (150 mg) by mouth 2 times a day. Chronic neck pain - pregabalin (Lyrica) 150 mg capsule; Take 1 capsule (150 mg) by mouth 2 times a day. documented in this encounter [facility] Work Phone: 11-19-2023 History of Present illness Narrative Subjective Patient ID: Pedrito Khalil is a 47 y.o. female who presents for 6 mth ov. HPI OARRS: Stephanie Rutledge MD on 11/19/2023 4:26 PM I have personally reviewed the OARRS report for Pedrito Khalil. I have considered the risks of abuse, dependence, addiction and diversion Is the patient prescribed a combination of a benzodiazepine and opioid? No Last Urine Drug Screen / ordered today: yes Results are as expected. November 2022 Lyrica last dose was 10 hour ago Controlled Substance Agreement: Date of the Last Agreement: November printed and reviewed November 19, 2023 Reviewed Controlled Substance Agreement including but not limited to the benefits, risks, and alternatives to treatment with a Controlled Substance medication(s). Lyrica: What is the patient's goal of therapy? neck and migraine pain Is this being achieved with current treatment? Yes Pain Assessment: Analgesia What was your pain level on average during the past week?: 3 What was your pain level at its worst during the past week?: 4 What percentage of your pain has been relieved during the past week?: 50 % Is the amount of pain relief you are now obtaining from your current pain relievers enough to make a real difference in your life?: Y Query to Clinician: Is the patient's pain relief clinically significant?: Yes Activities of Daily Living Physical Functioning: Better Family Relationships: Same Social Relationships: Same Mood: same Sleep Patterns: same Overall Functioning: Better Adverse Events Is patient experiencing any side effects from current pain relievers?: N Patient's Overall Severity of Side Effects: None Assessment Is your overall impression that this patient is benefiting from opioid therapy?: Yes Specific Analgesic Plan: Continue present regimen Last month has 1 to 2 PIERSON none debilitating in the last month Last debililtating PIERSON over 1 year ago Neck pain left shoulder weakness occ burning pain 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 Constitutional: Appearance: Normal appearance. HENT: Head: Normocephalic and atraumatic. Eyes: Conjunctiva/sclera: Conjunctivae normal. Cardiovascular: Rate and Rhythm: Normal rate and regular rhythm. Pulmonary: Effort: Pulmonary effort is normal. Breath sounds: Normal breath sounds. Musculoskeletal: Cervical back: Neck supple. Skin: General: Skin is warm and dry. Neurological: General: No focal deficit present. Mental Status: She is alert and oriented to person, place, and time. Deep Tendon Reflexes: Reflexes normal. Psychiatric: Mood and Affect: Mood normal. Behavior: Behavior normal. Thought Content: Thought content normal. Judgment: Judgment normal. Assessment/Plan Problem List Items Addressed This Visit ICD-10-CM Medication monitoring encounter - Primary Z51.81 Relevant Orders Pregabalin,Urine Opiate/Opioid/Benzo Prescription Compliance Migraine without status migrainosus, not intractable G43.909 Relevant Medications pregabalin (Lyrica) 150 mg capsule Chronic neck pain M54.2, G89.29 Relevant Medications pregabalin (Lyrica) 150 mg capsule Other Visit Diagnoses Codes Encounter for screening mammogram for breast cancer Z12.31 Relevant Orders BI mammo bilateral screening tomosynthesis documented in this encounter [facility] Work Phone: 11-09-2022 History of Present illness Narrative OARRS: Stephanie Rutledge MD on 11/09/2022 4:26 PM I have personally reviewed the OARRS report for Pedrito Khalil. I have considered the risks of abuse, dependence, addiction and diversion Is the patient prescribed a combination of a benzodiazepine and opioid? No Last Urine Drug Screen / ordered today: Yes Recent Results (from the past [id number] hour(s)) OPIATE/OPIOID/BENZO PRESCRIPTION COMPLIANCE Collection Time: 11/04/21 9:01 AM Result Value Ref Range DRUG SCREEN COMMENT URINE SEE BELOW Creatine, Urine 116.2 mg/dL Amphetamine Screen, Urine PRESUMPTIVE NEGATIVE NEGATIVE Barbiturate Screen, Urine PRESUMPTIVE NEGATIVE NEGATIVE Cannabinoid Screen, Urine PRESUMPTIVE NEGATIVE NEGATIVE Cocaine Screen, Urine PRESUMPTIVE NEGATIVE NEGATIVE PCP Screen, Urine PRESUMPTIVE NEGATIVE NEGATIVE 7-Aminoclonazepam <25 Cutoff <25 ng/mL Alpha-Hydroxyalprazolam <25 Cutoff <25 ng/mL Alpha-Hydroxymidazolam <25 Cutoff <25 ng/mL Alprazolam <25 Cutoff <25 ng/mL Chlordiazepoxide <25 Cutoff <25 ng/mL Clonazepam <25 Cutoff <25 ng/mL Diazepam <25 Cutoff <25 ng/mL Lorazepam <25 Cutoff <25 ng/mL Midazolam <25 Cutoff <25 ng/mL Nordiazepam <25 Cutoff <25 ng/mL Oxazepam <25 Cutoff <25 ng/mL Temazepam <25 Cutoff <25 ng/mL Zolpidem <25 Cutoff <25 ng/mL Zolpidem Metabolite (ZCA) <25 Cutoff <25 ng/mL 6-Acetylmorphine <25 Cutoff <25 ng/mL Codeine <50 Cutoff <50 ng/mL Hydrocodone <25 Cutoff <25 ng/mL Hydromorphone <25 Cutoff <25 ng/mL Morphine Urine <50 Cutoff <50 ng/mL Norhydrocodone <25 Cutoff <25 ng/mL Noroxycodone <25 Cutoff <25 ng/mL Oxycodone <25 Cutoff <25 ng/mL Oxymorphone <25 Cutoff <25 ng/mL Tramadol <50 Cutoff <50 ng/mL O-Desmethyltramadol <50 Cutoff <50 ng/mL Fentanyl <2.5 Cutoff<2.5 ng/mL Norfentanyl <2.5 Cutoff<2.5 ng/mL METHADONE CONFIRMATION,URINE <25 Cutoff <25 ng/mL EDDP <25 Cutoff <25 ng/mL Pregabalin,Urine Collection Time: 11/04/21 9:01 AM Result Value Ref Range PREGABALIN,URINE 199.5 ug/mL Results are as expected. Controlled Substance Agreement: Date of the Last Agreement: November Reviewed Controlled Substance Agreement including but not limited to the benefits, risks, and alternatives to treatment with a Controlled Substance medication(s). Lyrica: What is the patient's goal of therapy? Dec neck and migraine pain Is this being achieved with current treatment? Yes Pain Assessment: Analgesia What was your pain level on average during the past week?: 0 - No pain What was your pain level at its worst during the past week?: 4 What percentage of your pain has been relieved during the past week?: 50 % Is the amount of pain relief you are now obtaining from your current pain relievers enough to make a real difference in your life?: Y Query to Clinician: Is the patient's pain relief clinically significant?: Yes Activities of Daily Living Physical Functioning: Better Family Relationships: Same Social Relationships: Same Mood: Better Sleep Patterns: Better Overall Functioning: Better Adverse Events Is patient experiencing any side effects from current pain relievers?: N Patient's Overall Severity of Side Effects: None Assessment Is your overall impression that this patient is benefiting from opioid therapy?: Yes Specific Analgesic Plan: Continue present regimen Subjective Patient ID: Pedrito Khalil is a 46 y.o. female who presents for 6 month. 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 Recommendation is to repeat diagnostic bilateral mammogram in November 2022. No changes wit sbe 1 last chol has normal about 2019 and recommend every 5 years Fxhx neg colon cancer neg for dm Review of Systems Respiratory: Negative for shortness of breath. Cardiovascular: Negative for chest pain and palpitations. Neurological: Positive for dizziness, numbness and headaches (left pincer grasp). Negative for weakness (left pincer grasp is the same not getting worse). Objective BP 106/70 Pulse 60 Ht 1.778 m (5' 10) Wt 74.5 kg (164 lb 4.8 oz) BMI 23.57 kg/m Physical Exam Vitals reviewed. Constitutional: Appearance: Normal appearance. HENT: Head: Normocephalic and atraumatic. Eyes: Conjunctiva/sclera: Conjunctivae normal. Cardiovascular: Rate and Rhythm: Normal rate and regular rhythm. Pulmonary: Effort: Pulmonary effort is normal. Breath sounds: Normal breath sounds. Musculoskeletal: Cervical back: Neck supple. Skin: General: Skin is warm and dry. Neurological: General: No focal deficit present. Mental Status: She is alert and oriented to person, place, and time. Motor: No weakness. Gait: Gait normal. Deep Tendon Reflexes: Reflexes normal. Psychiatric: Mood and Affect: Mood normal. Behavior: Behavior normal. Thought Content: Thought content normal. Judgment: Judgment normal. Assessment/Plan Diagnoses and all orders for this visit: Abnormal mammogram of left breast - BI mammo bilateral diagnostic; Future Medication monitoring encounter - Drug Screen, Urine With Reflex to Confirmation; Future Other orders - Follow Up In Primary Care; Future documented in this encounter [facility] Work Phone: Evaluation note No assessment inform ation available [facility] Work Phone: Evaluation note Diagnosis Abnormal mammogram of left breast- Primary Medication monitoring encounter Encounter for therapeutic drug monitoring Other migraine without status migrainosus, not intractable Chronic neck pain Cervicalgia documented in this encounter [facility] Work Phone: Evaluation note* Diagnosis Medication monitoring encounter- Primary Encounter for therapeutic drug monitoring Other migraine without status migrainosus, not intractable Chronic neck pain Cervicalgia Encounter for screening mammogram for breast cancer documented in this encounter [facility] Work Phone: Evaluation note* Diagnosis Other migraine without status migrainosus, not intractable Chronic neck pain Cervicalgia documented in this encounter [facility] Work Phone: Evaluation note* Diagnosis Long-term use of high-risk medication- Primary Encounter for long-term (current) use of medications Encounter for long-term (current) use of other medications Chronic neck pain Cervicalgia Other migraine without status migrainosus, not intractable Encounter for screening mammogram for breast cancer documented in this encounter [facility] Work Phone: History of Present illness Narrative* see CSA * Migraines * dx at least since 2013 * never took imitirex * ibuprofen at onset * some nausea no vomtitting * light sensistivity * per month 2 PIERSON and none debilitating fro almost 12 months * before lyrica was getting twice that many * Neuro [facility] had MRI brain and spine due to dizziness and dragging foot x 1 with neg MS and cva work out * 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 * nonsmoker * Allergic Rhinitis had allergy testing allergic to everything * atrovent nasal year round * 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 I have considered the risks of abuse,dependence, addiction and diversion. * Is the patient prescribed a combination of a benzodiazepine and opioid? No. * Last urine drug screening date/ordered today: 11/03/21 * Results of last screen: Results as expected. * Controlled Substance Agreement: * I have printed this form and reviewed each line item with the patient and the patient has verbalized understanding. * Date of the last Controlled Substance Agreement: 05/15/2021 * LYRICA * What is the patient s goal of therapy? migraines. * Is this being achieved with current treatment? yes. * Pain Assessment and Documentation Tool (PADT) * Date of Assessment: 11/03/21 * Analgesia: * Patient reports her pain level on average during the past week is 0 on a 0 - 10 scale. * Patient reports that her pain level at its worst during the past week was 0 on a 0 -10 scale. * Patient states that the amount of pain relief she is now obtaining from her current pain reliever(s) is enough to make a real difference in her life. * Query to clinician: Is the patient's pain relief clinically significant? Yes * Activities of Daily Living: * Physical functioning: Better * Mood: Same * Sleep patterns: Same * Overall functioning: Better * Adverse Events: * No, PEDRITO KHALIL is not experiencing side effects from current pain reliever. * a. Nausea: None * b. Vomiting: None * e. 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 I have considered the risks of abuse,dependence, addiction and diversion. * Is the patient prescribed a combination of a benzodiazepine and opioid? No. * Last urine drug screening date/ordered today: 11/03/21 * Results of last screen: Results as expected. * Controlled Substance Agreement: * I have printed this form and reviewed each line item with the patient and the patient has verbalized understanding. * Date of the last Controlled Substance Agreement: 05/11/2022 * LYRICA * What is the patient s goal of therapy? migraines. * Is this being achieved with current treatment? yes. * Pain Assessment and Documentation Tool (PADT) * Date of Assessment: 05/11/22 * Analgesia: * Patient reports her pain level on average during the past week is 1 on a 0 - 10 scale. * Patient reports that her pain level at its worst during the past week was 3 on a 0 -10 scale. * 75 % of pain has been relieved during the past week per patient * Patient states that the amount of pain relief she is now obtaining from her current pain reliever(s) is enough to make a real difference in her life. * Query to clinician: Is the patient's pain relief clinically significant? Yes * Activities of Daily Living: * Physical functioning: Better * Mood: Same * Sleep patterns: Better * Overall functioning: Better * Adverse Events: * No, PEDRITO KHALIL is not experiencing side effects from current pain reliever. * a. Nausea: None * b. Vomiting: None * e. Mental cloudiness: None (migraine and cervical annular tear ) * Activities of Daily Living: * Yes, it is my opinion that this patient is benefitting from Lyrica therapy. -[facility] Work Phone: Reason for referral (narrative)* Consultation (Routine) - Authorized Specialty Diagnoses / Procedures Referred By Kitty jerome Referred To Contact Primary Care Procedures Follow Up In Primary Care Stephanie Rutledge MD [address] [facility], [place] [address] Referral ID Status Reason Start Date Expiration Date V isits Requested Visits Authorized [id number] Authorized 11/09/2022 05/08/2023 1 1 * Imaging (Routine) - Authorized Specialty Diagnoses / Procedures Referred By Kitty jerome Referred To Contact Radiology Diagnoses Abnormal mammogram of left breast Procedures BI mammo bilateral diagnostic Stephanie Rutledge MD [address] [facility], [address] [place] [id number] Referral ID Status Reason Start Date Expiration Date Visits Requested Visits Authorized [id number] Authorized Perform Procedure 11/09/2022 05/08/2023 1 1 [facility] Work Phone: Summary Purpose Family History No Family History Records FoundUnknown Family Member Name Dates Details No pertinent family history: Mother(V49.89, Z78.9) Status:Active Family history of cerebrovas cular accident (CVA): Father(V17.1, Z82.3) Status:Active Unknown Family Member Name Dates Details No pertinent family history: Mother(V49.89, Z78.9) Status:Active Family history of cerebrovas cular accident (CVA): Father(V17.1, Z82.3) Status:Active Unknown Family Member Name Dates Details No pertinent family history: Mother(V49.89, Z78.9) Status:Active Family history of cerebrovas cular accident (CVA): Father(V17.1, Z82.3) Status:Active Unknown Family Member Name Dates Details No pertinent family history: Mother(V49.89, Z78.9) Status:Active Family history of cerebrovas cular accident (CVA): Father(V17.1, Z82.3) Status:Active Unknown Family Member Name Dates Details No pertinent family history: Mother(V49.89, Z78.9) Status:Active Family history of cerebrovas cular accident (CVA): Father(V17.1, Z82.3) Status:Active Advance Directives No Advanced Directives Records FoundDocuments on File Type Date Recorded 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 Reason for Referral Specialty Diagnoses / Procedures Referred By Contac t Referred To Contact Radiology Diagnoses Encounter for screening mammogram for breast cancer Procedures BI mammo bilateral screening tomosynthesis Stephanie Rutledge MD [address] [facility] [address] [place] [address] Referral ID Status Reason Start Date Expiration Date Visits Requested Visits Authorized [id number] Authorized Perform Procedure 11/19/2023 11/18/2024 1 1 Additional Source Comments INFORMATION SOURCE (unrecogn ized section and content) DATE CREATED AUTHOR 11/22/2019 [facility] DATE CREATED AUTHOR AUTHOR'S ORGANIZ ATION 05/12/2022 [facility] DATE CREATED AUTHOR AUTHOR'S ORGANIZ ATION 05/25/2022 [employer] DATE CREATED AUTHOR AUTHOR'S ORGANIZ ATION 11/28/2022 [facility] DATE CREATED AUTHOR AUTHOR'S ORGANIZ ATION 11/16/2024 [facility] DATE CREATED AUTHOR AUTHOR'S ORGANIZ ATION 11/21/[address] [facility] DATE CREATED AUTHOR AUTHOR'S ORGANIZ ATION 11/29/2024 [facility] Goals (unrecognized section and content) Goals may be documented in a n alternate sectionGoals may be documented in an alternate sectionGoals may be documented in an alternate sectionGoals may be documented in an alternate sectionGoals may be documented in an alternate sectionGoals may be documented in an alternate sectionGoals may be documented in an alternate sectionGoals may be documented in an alternate section Reason for Visit (unrecogniz ed section and content) Reason Comments 6 month Reason Comments 6 mth ov Reason Comments Migraines 6 mo; having 2 heada ches a month Reason Comments Migraine Chronic neck pain UDS needed Care Teams (unrecognized sec tion and content) 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 Stephanie Rutledge MD Primary Care Provider Active Team Status: Inactive Member Role Status Dates Dr. Stephanie Rutledge MD Primary Care Provider Active Dr. Gilbert Faria MD Attending Provider Active Team Status: Inactive Member Role Status Dates Dr. Stephanie Rutledge MD Primary Care Provider Active Dr. 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 Start Date End Date Stephanie Rutledge MD [address] [facility] [place] [address] PCP - General 05/13/20 Stephanie Rutledge MD [address] [facility] [place] [address] PCP - [facility] Medicaid PCP 10/03/22 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 This clinical summary was aggregated from multiple sources. Caution should be exercised in using it in the provision of clinical care. This summary normalizes information from multiple sources, and as a consequence, information in this document may materially change the coding, format and clinical context of patient data. In addition, data may be omitted in some cases. CLINICAL DECISIONS SHOULD BE BASED ON THE PRIMARY CLINICAL RECORDS. [facility] provides no warranty or guarantee of the accuracy or completeness of information in this document.
== END | disposition home or self-care (01) ==
LOC: OPBI 07:07
PROVIDERS: PCP Family Medicine; Referring Provider Family Medicine; Visit Provider Family Medicine
DX: Z12.31 Encounter for screening mammogram for malignant neoplasm of breast (principal)
CPT/HCPCS: 77063; 77067